=== PATIENT | female | born 1975 | race African-American/Black ===

== ENCOUNTER 2019-11-10 11:55 | Inpatient (IN) | payer OTHER ==
--- NOTE | 2019-11-10 12:29 | BHS.RME ---
Substance Use & Tx History - Substance Use History Alcohol Substance amount: 1 pint to one liter Frequency of use: Daily Substance route: Oral Date of Last Use: 11/10/19 Cannabis Substance amount: one blunt Frequency of use: Once a month Substance route: Smoking Date of Last Use: 11/08/19 Physical/Psych/Mental Status - Behavior General Behavior: Decreased activity Eye Contact: Decreased - Cooperativeness Cooperativeness: Cooperative - Thinking Thought Processes: Tight Thought content: Suicidal ideation ("I just want to do it, but I'm not going to do it") - Physical Health Problems Is patient presently having any pain?: No Does patient presently have any injuries (include location): No Does patient currently have a fever: No CIWA Nausea/Vomitin-Mild Nausea/No Vomiting Muscle Tremors: 3 Anxiety: 1-Mildly Anxious Agitation: 0-Normal Activity Paroxysmal Sweats: No Perspiration Orientation: 0-Oriented Tacttile Disturbances: 0-None Auditory Disturbances: 2-Mild Harshness/Frighten Visual Disturbances: 3-Moderate Sensitivity Headache: 2-Mild CIWA-Ar Total Score: 12
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
[2019-11-10] MEDS ORDERED: MAG HYDROX/AL HYDROX/SIMETH 30 ML UNIT-DOSE CUP PO PRN (13:46)
[2019-11-10] MEDS ORDERED: MAGNESIUM CITRATE 300 ML BOTTLE PO PRN (13:46)
[2019-11-10] MEDS ORDERED: METHOCARBAMOL 500 MG TABLET PO PRN (13:46)
[2019-11-10] MEDS ORDERED: ACETAMINOPHEN 325 MG TABLET (FP) PO PRN ×2 (13:46)
[2019-11-10] MEDS ORDERED: IBUPROFEN 400 MG TABLET (FP) PO PRN (13:46)
[2019-11-10] MEDS ORDERED: NICOTINE POLACRILEX 2 MG GUM BUC PRN (13:46)
[2019-11-10] MEDS ORDERED: MENTHOL/PHENOL 1 EACH UD MM PRN (13:46)
[2019-11-10] MEDS ORDERED: MAGNESIUM HYDROX 2400MG/30ML ORAL SUSPENSION 30 ML CUP PO PRN (13:46)
[2019-11-10] MEDS ORDERED: chlordiazePOXIDE HCL 25 MG CAPSULE PO PRN (13:46)
[2019-11-10 13:58] VITALS: BMI 26.1
[2019-11-10] MEDS ORDERED: BISMUTH SUBSALICYLATE 262 MG/15 ML BTL PO PRN (14:18)
[2019-11-10] MEDS ORDERED: ONDANSETRON *ODT* 4 MG TABLET SL ONE (14:20)
[2019-11-10] MEDS: hydrOXYzine PAMOATE 25 MG CAPSULE (FP) PO SCH ×3 (14:52→22:18)
[2019-11-10] MEDS: PRENATAL VITAMINS W/ FOLIC ACID TABLET (FP) PO SCH (14:52)
[2019-11-10] MEDS: NICOTINE 7 MG/24 HOURS TOPICAL PATCH TD SCH (14:52)
[2019-11-10] MEDS: chlordiazePOXIDE HCL 25 MG CAPSULE PO SCH ×2 (18:05→22:18)
[2019-11-10] MEDS: THIAMINE HCL 100 MG TABLET (FP) PO SCH (22:18)
[2019-11-10] MEDS: MELATONIN 5 MG TABLETS PO SCH (22:19)
[2019-11-11] MEDS: hydrOXYzine PAMOATE 25 MG CAPSULE (FP) PO SCH ×5 (05:31→22:24)
[2019-11-11] MEDS: chlordiazePOXIDE HCL 25 MG CAPSULE PO SCH ×4 (05:31→22:24)
[2019-11-11 09:10] LABS: HEMATOCRIT 34.8 % (32.4-45.2); HEMOGLOBIN 11.3 GM/dL (10.7-15.3); MCH 27.4 pg (25.7-33.7); MCHC 32.4 g/dl (32.0-36.0); MEAN CELL VOLUME 84.6 fl (80-96); MEAN PLT VOLUME 9.1 fl (7.5-11.1); PLATELET COUNT 248 K/MM3 (134-434); RBC 4.11 M/mm3 (3.60-5.2); RDW 18.4 % (11.6-15.6); WHITE BLOOD COUNT 4.1 K/mm3 (4.0-10.0)
[2019-11-11 09:25] LABS: ALBUMIN 3.5 g/dl (3.4-5.0); BILIRUBIN,TOTAL 0.6 mg/dL (0.2-1); BLOOD UREA NITROGEN 11.9 mg/dL (7-18); CALCIUM 9.1 mg/dL (8.5-10.1); CREATININE 0.9 mg/dL (0.55-1.3); POTASSIUM 4.4 mmol/L (3.5-5.1); TOT PROT 7.7 g/dl (6.4-8.2)
[2019-11-11] MEDS: PRENATAL VITAMINS W/ FOLIC ACID TABLET (FP) PO SCH (10:25)
[2019-11-11] MEDS: NICOTINE 7 MG/24 HOURS TOPICAL PATCH TD SCH (10:26)
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
--- NOTE | 2019-11-11 13:47 | PN ---
[facility] CIWA - CIWA Score Nausea/Vomitin-Mild Nausea/No Vomiting Muscle Tremors: 2 Anxiety: 2 Agitation: 2 Paroxysmal Sweats: No Perspiration Orientation: 0-Oriented Tacttile Disturbances: 1-Very Mild Itch/Numbness Auditory Disturbances: 0-None Visual Disturbances: 0-None Headache: 1-Very Mild CIWA-Ar Total Score: 9 S Progress Note (SOAP) Subjective: alert,irritable,anxious,interrupted sleep,tremor Objective: 11/11/19 13:46 Vital Signs Temperature 97.3 F L 11/11/19 08:47 Pulse Rate 72 11/11/19 08:47 Respiratory Rate 17 11/11/19 08:47 Blood Pressure 118/62 11/11/19 08:47 O2 Sat by Pulse Oximetry (%) Laboratory Last Values WBC 4.1 K/mm3 (4.0-10.0) 11/11/19 05:45 RBC 4.11 M/mm3 (3.60-5.2) 11/11/19 05:45 Hgb 11.3 GM/dL (10.7-15.3) 11/11/19 05:45 Hct 34.8 % (32.4-45.2) 11/11/19 05:45 MCV 84.6 fl (80-96) 11/11/19 05:45 MCH 27.4 pg (25.7-33.7) 11/11/19 05:45 MCHC 32.4 g/dl (32.0-36.0) 11/11/19 05:45 RDW 18.4 % (11.6-15.6) H 11/11/19 05:45 Plt Count 248 K/MM3 (134-434) 11/11/19 05:45 MPV 9.1 fl (7.5-11.1) 11/11/19 05:45 Sodium 142 mmol/L (136-145) 11/11/19 05:45 Potassium 4.4 mmol/L (3.5-5.1) 11/11/19 05:45 Chloride 105 mmol/L (98-107) 11/11/19 05:45 Carbon Dioxide 28 mmol/L (21-32) 11/11/19 05:45 Anion Gap 8 MMOL/L (8-16) 11/11/19 05:45 BUN 11.9 mg/dL (7-18) 11/11/19 05:45 Creatinine 0.9 mg/dL (0.55-1.3) 11/11/19 05:45 Est GFR (CKD-EPI)AfAm 90.76 11/11/19 05:45 Est GFR (CKD-EPI)NonAf 78.31 11/11/19 05:45 Random Glucose 83 mg/dL (74-106) 11/11/19 05:45 Calcium 9.1 mg/dL (8.5-10.1) 11/11/19 05:45 Total Bilirubin 0.6 mg/dL (0.2-1) 11/11/19 05:45 AST 24 U/L (15-37) 11/11/19 05:45 ALT 24 U/L (13-61) 11/11/19 05:45 Alkaline Phosphatase 73 U/L (45-117) 11/11/19 05:45 Total Protein 7.7 g/dl (6.4-8.2) 11/11/19 05:45 Albumin 3.5 g/dl (3.4-5.0) 11/11/19 05:45 RPR Titer Nonreactive (NONREACTIVE) 11/11/19 05:45 Assessment: 11/11/19 13:47 withdrawal symptom Plan: continue detox librium regimen
[2019-11-11] MEDS: MELATONIN 5 MG TABLETS PO SCH (22:24)
[2019-11-11] MEDS: THIAMINE HCL 100 MG TABLET (FP) PO SCH (22:24)
[2019-11-12] MEDS: chlordiazePOXIDE HCL 25 MG CAPSULE PO SCH ×4 (05:39→22:31)
[2019-11-12] MEDS: hydrOXYzine PAMOATE 25 MG CAPSULE (FP) PO SCH ×2 (05:39→10:41)
[2019-11-12] MEDS: NICOTINE 7 MG/24 HOURS TOPICAL PATCH TD SCH (10:41)
[2019-11-12] MEDS: PRENATAL VITAMINS W/ FOLIC ACID TABLET (FP) PO SCH (10:41)
[2019-11-12] MEDS ORDERED: hydrOXYzine PAMOATE 25 MG CAPSULE (FP) PO PRN (12:47)
--- NOTE | 2019-11-12 12:50 | PN ---
[facility] CIWA - CIWA Score Nausea/Vomitin-No Nausea/No Vomiting Muscle Tremors: 2 Anxiety: 1-Mildly Anxious Agitation: 2 Paroxysmal Sweats: 2 Orientation: 0-Oriented Tacttile Disturbances: 0-None Auditory Disturbances: 0-None Visual Disturbances: 0-None Headache: 0-None Present CIWA-Ar Total Score: 7 S Progress Note (SOAP) Subjective: sweats diarrhea Objective: 11/12/19 12:49 Vital Signs Temperature 98.1 F 11/12/19 08:50 Pulse Rate 78 11/12/19 08:50 Respiratory Rate 18 11/12/19 08:50 Blood Pressure 129/95 11/12/19 08:50 O2 Sat by Pulse Oximetry (%) Laboratory Tests 11/11/19 11/11/19 11/11/19 05:45 05:45 05:45 WBC 4.1 RBC 4.11 Hgb 11.3 Hct 34.8 MCV 84.6 MCH 27.4 MCHC 32.4 RDW 18.4 H Plt Count 248 MPV 9.1 Sodium 142 Potassium 4.4 Chloride 105 Carbon Dioxide 28 Anion Gap 8 BUN 11.9 Creatinine 0.9 Est GFR (CKD-EPI)AfAm 90.76 Est GFR (CKD-EPI)NonAf 78.31 Random Glucose 83 Calcium 9.1 Total Bilirubin 0.6 AST 24 ALT 24 Alkaline Phosphatase 73 Total Protein 7.7 Albumin 3.5 RPR Titer Nonreactive labs noted aaox3 ambulating no acute distress Assessment: 11/12/19 12:50 withdrawals Plan: continue detox increase fluids imodium prn
[2019-11-12] MEDS: LOPERAMIDE HCL 2 MG CAPSULE PO PRN (16:17)
[2019-11-12] MEDS: MELATONIN 5 MG TABLETS PO SCH (22:31)
[2019-11-12] MEDS: THIAMINE HCL 100 MG TABLET (FP) PO SCH (22:31)
[2019-11-13] MEDS ORDERED: chlordiazePOXIDE HCL 10 MG CAPSULE PO PRN
[2019-11-13] MEDS ORDERED: ONDANSETRON *ODT* 4 MG TABLET SL PRN (02:27)
[2019-11-13] MEDS: chlordiazePOXIDE HCL 10 MG CAPSULE PO SCH ×4 (06:17→22:28)
[2019-11-13] MEDS: NICOTINE 7 MG/24 HOURS TOPICAL PATCH TD SCH (10:44)
[2019-11-13] MEDS: PRENATAL VITAMINS W/ FOLIC ACID TABLET (FP) PO SCH (10:44)
[2019-11-13] MEDS: LOPERAMIDE HCL 2 MG CAPSULE PO PRN (10:45)
--- NOTE | 2019-11-13 12:07 | PN ---
S CIWA - CIWA Score Nausea/Vomitin-No Nausea/No Vomiting Muscle Tremors: 2 Anxiety: 1-Mildly Anxious Agitation: 2 Paroxysmal Sweats: 1-Minimal Palms Moist Orientation: 0-Oriented Tacttile Disturbances: 0-None Auditory Disturbances: 0-None Visual Disturbances: 0-None Headache: 0-None Present CIWA-Ar Total Score: 6 BHS Progress Note (SOAP) Subjective: sweats diarrhea nausea interrupted sleep/insomnia Objective: 11/13/19 12:04 Vital Signs Temperature 99.1 F 11/13/19 08:42 Pulse Rate 80 11/13/19 08:42 Respiratory Rate 18 11/13/19 08:42 Blood Pressure 115/77 11/13/19 08:42 O2 Sat by Pulse Oximetry (%) Laboratory Tests 11/11/19 11/11/19 11/11/19 05:45 05:45 05:45 WBC 4.1 RBC 4.11 Hgb 11.3 Hct 34.8 MCV 84.6 MCH 27.4 MCHC 32.4 RDW 18.4 H Plt Count 248 MPV 9.1 Sodium 142 Potassium 4.4 Chloride 105 Carbon Dioxide 28 Anion Gap 8 BUN 11.9 Creatinine 0.9 Est GFR (CKD-EPI)AfAm 90.76 Est GFR (CKD-EPI)NonAf 78.31 Random Glucose 83 Calcium 9.1 Total Bilirubin 0.6 AST 24 ALT 24 Alkaline Phosphatase 73 Total Protein 7.7 Albumin 3.5 RPR Titer Nonreactive aaox3 lying in bed no acute distress Assessment: 11/13/19 12:05 withdrawal sx Plan: continue detox increase fluids pepto prn melatonin 10mg
[2019-11-13] MEDS: MELATONIN 5 MG TABLETS PO SCH (22:28)
[2019-11-13] MEDS: THIAMINE HCL 100 MG TABLET (FP) PO SCH (22:28)
[2019-11-14] MEDS ORDERED: chlordiazePOXIDE HCL 10 MG CAPSULE PO SCH (05:00)
--- NOTE | 2019-11-14 09:00 | DS ---
[facility] Detox Discharge Summary Admission Date: 11/10/19 Discharge Date: 11/14/19 - History Present History: Alcohol Dependence - Physical Exam Results Vital Signs: Vital Signs Temperature 98.2 F 11/14/19 06:52 Pulse Rate 82 11/14/19 06:52 Respiratory Rate 18 11/14/19 06:52 Blood Pressure 115/81 11/14/19 06:52 O2 Sat by Pulse Oximetry (%) Pertinent Admission Physical Exam Findings: Vital Signs Temperature 98.2 F 11/14/19 06:52 Pulse Rate 82 11/14/19 06:52 Respiratory Rate 18 11/14/19 06:52 Blood Pressure 115/81 11/14/19 06:52 O2 Sat by Pulse Oximetry (%) Laboratory Tests 11/11/19 11/11/19 11/11/19 05:45 05:45 05:45 WBC 4.1 RBC 4.11 Hgb 11.3 Hct 34.8 MCV 84.6 MCH 27.4 MCHC 32.4 RDW 18.4 H Plt Count 248 MPV 9.1 Sodium 142 Potassium 4.4 Chloride 105 Carbon Dioxide 28 Anion Gap 8 BUN 11.9 Creatinine 0.9 Est GFR (CKD-EPI)AfAm 90.76 Est GFR (CKD-EPI)NonAf 78.31 Random Glucose 83 Calcium 9.1 Total Bilirubin 0.6 AST 24 ALT 24 Alkaline Phosphatase 73 Total Protein 7.7 Albumin 3.5 RPR Titer Nonreactive aaox3 ambulating no acute distress +BS all 4 quadrants - Treatment Hospital Course: Detox Protocol Followed, Detoxed Safely, Responded well, Discharged Condition Good, Rehab Referral Accepted - Medication Discharge Medications: Ambulatory Orders NK [No Known Home Medication] 11/10/19 - Diagnosis (1) Alcohol dependence with intoxication Current Visit: Yes Status: Acute (2) Anemia Current Visit: Yes Status: Acute (3) Asthma Current Visit: Yes Status: Acute (4) GERD (gastroesophageal reflux disease) Current Visit: Yes Status: Chronic Qualifiers: Esophagitis presence: without esophagitis Qualified Code(s): K21.9 - Gastro-esophageal reflux disease without esophagitis (5) Major depression, recurrent Current Visit: Yes Status: Acute (6) Alcohol use disorder Current Visit: Yes Status: Chronic (7) History of depression Current Visit: Yes Status: Chronic (8) Nicotine dependence Current Visit: Yes Status: Chronic Qualifiers: Nicotine product type: cigarettes Substance use status: uncomplicated Qualified Code(s): F17.210 - Nicotine dependence, cigarettes, uncomplicated (9) Substance induced mood disorder Current Visit: Yes Status: Chronic - AMA Did Patient Leave Against Medical Advice: No
[2019-11-14 09:31] VITALS: BP 125/69; PULSE 75; TEMP 97.4
[2019-11-15] MEDS ORDERED: chlordiazePOXIDE HCL 10 MG CAPSULE PO ONE (05:00)
== END 2019-11-14 10:11 | disposition home or self-care (01) | DRG 775 ==
LOC: YASAS 11:55 → Y6N 13:51
PROVIDERS: ADMIT Allergy & Immunology; ATTEND Allergy & Immunology
PROC: HZ2ZZZZ Detoxification Services for Substance Abuse Treatment (ICD-10-PCS; principal; 2019-11-10)
DX: F10.230 Alcohol dependence with withdrawal, uncomplicated (principal); F17.210 Nicotine dependence, cigarettes, uncomplicated; F19.24 Other psychoactive substance dependence with psychoactive substance-induced mood disorder; F33.9 Major depressive disorder, recurrent, unspecified; D64.9 Anemia, unspecified; J45.909 Unspecified asthma, uncomplicated; K21.9 Gastro-esophageal reflux disease without esophagitis; Z59.0 Homelessness
CPT/HCPCS: 36415; 80053; 85027; 86593; Q0162

== ENCOUNTER 2020-04-12 09:05 | Inpatient (IN) | payer OTHER ==
--- NOTE | 2020-04-12 09:38 | BHS.RME ---
Substance Use & Tx History - Substance Use History Alcohol Substance amount: 1 pint vodka Frequency of use: Daily Substance route: Oral Date of Last Use: 04/11/20 Marijuana/Hashish Substance amount: $10 Frequency of use: Once a month Substance route: Smoking Date of Last Use: 04/05/20 Nicotine Substance amount: 1/2 PACK Frequency of use: Daily Substance route: Smoking Date of Last Use: 04/12/20 Physical/Psych/Mental Status - Behavior General Behavior: Increased activity (restlessness, agitation) Eye Contact: Normal - Cooperativeness Cooperativeness: Cooperative - Thinking Thought Processes: Tight, Logical, Goal Directed - Physical Health Problems Is patient presently having any pain?: No Does patient presently have any injuries (include location): No Does patient currently have a fever: No Is patient : No CIWA Nausea/Vomitin Muscle Tremors: 6 Anxiety: 3 Agitation: 3 Paroxysmal Sweats: 1-Minimal Palms Moist Orientation: 0-Oriented Tacttile Disturbances: 0-None Auditory Disturbances: 0-None Visual Disturbances: 0-None Headache: 2-Mild CIWA-Ar Total Score: 18
[2020-04-12 09:55] VITALS: BMI 26.5
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
[2020-04-12] MEDS ORDERED: ONDANSETRON *ODT* 4 MG TABLET SL ONE (11:06)
[2020-04-12] MEDS ORDERED: BISMUTH SUBSALICYLATE 524 MG/30 ML UD PO PRN (11:06)
[2020-04-12] MEDS ORDERED: MAGNESIUM CITRATE 300 ML BOTTLE PO PRN (11:06)
[2020-04-12] MEDS ORDERED: MAGNESIUM HYDROX 2400MG/30ML ORAL SUSPENSION 30 ML CUP PO PRN (11:06)
[2020-04-12] MEDS ORDERED: IBUPROFEN 400 MG TABLET (FP) PO PRN (11:06)
[2020-04-12] MEDS ORDERED: MENTHOL/PHENOL 1 EACH UD MM PRN (11:06)
[2020-04-12] MEDS ORDERED: METHOCARBAMOL 500 MG TABLET PO PRN (11:06)
[2020-04-12] MEDS ORDERED: ACETAMINOPHEN 325 MG TABLET (FP) PO PRN ×2 (11:06)
[2020-04-12] MEDS ORDERED: chlordiazePOXIDE HCL 25 MG CAPSULE PO PRN (11:06)
--- NOTE | 2020-04-12 11:58 | CONSULT ---
[facility] Psychiatric Consult - Data Date of interview: 04/12/20 Admission source: [facility] Identifying data: Revisit to [facility] and admission to [address] [place] [address] for this 44 y/o AA female, referred by [facility] for detoxification treatment. JUSTINA issues : alcohol, nicotine, cannabis (sporadic use). Patient is single without children, homeless (resides in a retirement), unemployed and supported on undisclosed means. Substance Abuse History: Discussed with the patient. JUSTINA profile as follows : Smoking history: Current every day smoker. Have you smoked in the past 12 months: Yes. Aproximately how many cigarettes per day: 10. Hx Chewing Tobacco Use: No. Initiated information on smoking cessation: Yes. 'Breaking Loose' booklet given: 04/12/20. - Substances abused. Alcohol. Substance route: Oral. Frequency: Daily. Amount used: 1 PINT OF VODKA. Age of first use: 18. Date of last use: 04/11/20. Marijuana/Hashish. Substance route: Smoking. Frequency: 1-3 times last 30 days. Amount used: $10. Age of first use: 25. Date of last use: 04/05/20. Alcohol. Substance amount: 1 pint vodka. Frequency of use: Daily. Substance route: Oral. Date of Last Use: 04/11/20. Admits to having a black out just 1 month ago and has had many blackouts in the past. also endorses an eye umbrella tipper machine daily. Marijuana/Hashish. Substance amount: $10. Frequency of use: Once a month. Substance route: Smoking. Date of Last Use: 04/05/20. Nicotine. Substance amount: 1/2 PACK. Frequency of use: Daily. Substance route: Smoking. Date of Last Use: 04/12/20. PMH: Anemia, Asthma. Psurg: None. Psych: Depression on no meds. She is homeless in a [employer] in the [place]. She has no legal problems. CIWA=18. LINDSAY=0.014. Urine Tox: BZO. She meets criteria for detox as she has a poor recovery environment because she is homeless and has multiple medical and psychiatric co-morbidities. History Source: Patient. Limitations to Obtaining History: No Limitations Medical History: Medical profile is remarkable for anemia, GERD and bronchial asthma. Psychiatric History: Patient continues to endorse history of two psychiatric hospitalizations ([facility] in March 2019 + [facility] in October 2019). Onset of psychiatric disturbances (mood dysregulation) : age 41. Ms Braun was reportedly diagnosed with MDD and Anxiety Disorder (in the past). She states that she got prescribed " something for depression but never took the pill." Patient is not able to recall name of the drug. She indicates that she has been lost to follow-up for several weeks (appointments not kept). Patient reports a history of two suicide attempts via choking (made an attempt yesterday while in ED at [facility]). She was evaluated by a psychiatrist and discharged with referral to [facility] for detoxification treatment. Physical/Sexual Abuse/Trauma History: Patient denies. Additional Comment: Urine drug screen results: BZO-Benzodiazepines. Noted. Mental Status Exam - Mental Status Exam Alert and Oriented to: Time, Place, Person Cognitive Function: Good Patient Appearance: Well Groomed Mood: Hopeful Affect: Appropriate, Normal Range Patient Behavior: Fatigued, Appropriate, Cooperative Speech Pattern: Clear, Appropriate Voice Loudness: Normal Thought Process: Intact, Goal Oriented Thought Disorder: Not Present Hallucinations: Denies Suicidal Ideation: Denies Homicidal Ideation: Denies Insight/Judgement: Poor Sleep: Poorly, Difficulty falling asleep Appetite: Good Gait/Station: Normal Psychiatric Findings - Problem List ([place] 1, 2,3) (1) Alcohol use disorder Current Visit: Yes Status: Chronic (2) Cannabis dependence Current Visit: Yes Status: Chronic (3) Nicotine dependence Current Visit: Yes Status: Chronic Qualifiers: Nicotine product type: cigarettes Substance use status: uncomplicated Qualified Code(s): F17.210 - Nicotine dependence, cigarettes, uncomplicated (4) Substance induced mood disorder Current Visit: Yes Status: Chronic (5) History of depression Current Visit: Yes Status: Chronic (6) Insomnia Current Visit: Yes Status: Chronic (7) Non-compliance Current Visit: Yes Status: Chronic - Initial Treatment Plan Initial Treatment Plan: Case discussed with referring source, Dr Johnson. Consult conducted, with medical students in attendance (with patient's consent) at [facility]. Patient is NOT suicidal or homicidal. Mental status is stable. Ms Braun is agreeable with admission to the detoxification unit. " I am OK with detox but I will not stay for rehab. I prefer outpatient instead after detox. " Support and reassurance provided in this session. Psychoeducation. MAT-ETOH services offered (patient used to be on vivitrol). Sleep hygiene. Detoxification. Insomnia is addressed with melatonin (on consent). Motivational counseling. Observation.
[2020-04-12] MEDS: NICOTINE 7 MG/24 HOURS TOPICAL PATCH TD SCH (13:43)
[2020-04-12] MEDS: PRENATAL VITAMINS W/ FOLIC ACID TABLET (FP) PO SCH (13:44)
[2020-04-12] MEDS: chlordiazePOXIDE HCL 25 MG CAPSULE PO SCH ×3 (13:44→22:14)
[2020-04-12] MEDS: hydrOXYzine PAMOATE 25 MG CAPSULE (FP) PO SCH ×3 (13:44→22:14)
--- NOTE | 2020-04-12 13:55 | PN ---
[facility] Progress Note Note: Pt states she is on Suboxone Patient Name: Kasandra BraunBirth Date: 1975 Address: [address] [place] [id number]: Female Rx Written Rx Dispensed Drug Quantity Days Supply Prescriber Name 03/25/2020 03/25/2020 buprenorphine-naloxone 8-2 mg sl film 90 30 Peewee Gutierrez DIRECTOR OF [employer] 02/22/2020 02/23/2020 buprenorphine-naloxone 8-2 mg sl film 90 30 Peewee Gutierrez DIRECTOR OF [employer]PORATE REAL ESTATE 06/06/2019 06/07/2019 buprenorphine-naloxone 8-2 mg sl film 30 10 Giacomo Norris ([place]) 05/11/2019 05/11/2019 buprenorphine-naloxone 8-2 mg sl film 60 20 Giacomo Hanson ([place]) Will order Suboxone, pt states she takes it tid.
[2020-04-12] MEDS: THIAMINE HCL 100 MG TABLET (FP) PO SCH (22:14)
[2020-04-12] MEDS: MELATONIN 5 MG TABLETS PO SCH (22:14)
[2020-04-12] MEDS: BUPRENORPHINE/NALOXONE 8 MG/2 MG FILM PACKET SL SCH (22:15)
[2020-04-13] MEDS: BUPRENORPHINE/NALOXONE 8 MG/2 MG FILM PACKET SL SCH ×3 (05:20→21:54)
[2020-04-13] MEDS: chlordiazePOXIDE HCL 25 MG CAPSULE PO SCH ×4 (05:20→21:59)
[2020-04-13] MEDS: hydrOXYzine PAMOATE 25 MG CAPSULE (FP) PO SCH ×5 (05:20→21:54)
[2020-04-13] MEDS: NICOTINE POLACRILEX 2 MG GUM BUC PRN (05:21)
[2020-04-13 09:12] LABS: HEMATOCRIT 34.7 % (32.4-45.2); HEMOGLOBIN 11.1 GM/dL (10.7-15.3); MCH 27.3 pg (25.7-33.7); MEAN CELL VOLUME 85.2 fl (80-96); MEAN PLT VOLUME 9.1 fl (7.5-11.1); PLATELET COUNT 159 K/MM3 (134-434); RBC 4.07 M/mm3 (3.60-5.2); RDW 17.8 % (11.6-15.6); WHITE BLOOD COUNT 3.8 K/mm3 (4.0-10.0)
[2020-04-13 09:26] LABS: ALBUMIN 3.2 g/dl (3.4-5.0); BILIRUBIN,TOTAL 0.9 mg/dL (0.2-1); BLOOD UREA NITROGEN 9.4 mg/dL (7-18); CALCIUM 9.1 mg/dL (8.5-10.1); CREATININE 0.9 mg/dL (0.55-1.3); POTASSIUM 3.7 mmol/L (3.5-5.1); TOT PROT 6.9 g/dl (6.4-8.2)
[2020-04-13] MEDS: PRENATAL VITAMINS W/ FOLIC ACID TABLET (FP) PO SCH (10:29)
[2020-04-13] MEDS: NICOTINE 7 MG/24 HOURS TOPICAL PATCH TD SCH (10:30)
--- NOTE | 2020-04-13 11:39 | PN ---
[facility] CIWA - CIWA Score Nausea/Vomitin-No Nausea/No Vomiting Muscle Tremors: 2 Anxiety: 3 Agitation: 1-Slight > Activity Paroxysmal Sweats: 3 Orientation: 0-Oriented Tacttile Disturbances: 0-None Auditory Disturbances: 0-None Visual Disturbances: 0-None Headache: 2-Mild CIWA-Ar Total Score: 11 S Progress Note (SOAP) Subjective: c/o irritability, anxiety, sweats, shakes, and headache. Objective: 04/13/20 11:39 Vital Signs 04/13/20 04/13/20 06:34 08:48 Temperature 97.4 F L 97.2 F L Pulse Rate 66 84 Respiratory 18 20 Rate Blood Pressure 99/61 121/80 O2 Sat by Pulse 97 Oximetry (%) Laboratory Last Values WBC 3.8 K/mm3 (4.0-10.0) L 04/13/20 06:50 RBC 4.07 M/mm3 (3.60-5.2) 04/13/20 06:50 Hgb 11.1 GM/dL (10.7-15.3) 04/13/20 06:50 Hct 34.7 % (32.4-45.2) 04/13/20 06:50 MCV 85.2 fl (80-96) 04/13/20 06:50 MCH 27.3 pg (25.7-33.7) 04/13/20 06:50 MCHC 32.0 g/dl (32.0-36.0) 04/13/20 06:50 RDW 17.8 % (11.6-15.6) H 04/13/20 06:50 Plt Count 159 K/MM3 (134-434) 04/13/20 06:50 MPV 9.1 fl (7.5-11.1) 04/13/20 06:50 Sodium 140 mmol/L (136-145) 04/13/20 06:50 Potassium 3.7 mmol/L (3.5-5.1) 04/13/20 06:50 Chloride 105 mmol/L (98-107) 04/13/20 06:50 Carbon Dioxide 25 mmol/L (21-32) 04/13/20 06:50 Anion Gap 9 MMOL/L (8-16) 04/13/20 06:50 BUN 9.4 mg/dL (7-18) 04/13/20 06:50 Creatinine 0.9 mg/dL (0.55-1.3) 04/13/20 06:50 Est GFR (CKD-EPI)AfAm 90.76 04/13/20 06:50 Est GFR (CKD-EPI)NonAf 78.31 04/13/20 06:50 Random Glucose 103 mg/dL (74-106) 04/13/20 06:50 Calcium 9.1 mg/dL (8.5-10.1) 04/13/20 06:50 Total Bilirubin 0.9 mg/dL (0.2-1) 04/13/20 06:50 AST 29 U/L (15-37) 04/13/20 06:50 ALT 29 U/L (13-61) 04/13/20 06:50 Alkaline Phosphatase 59 U/L (45-117) 04/13/20 06:50 Total Protein 6.9 g/dl (6.4-8.2) 04/13/20 06:50 Albumin 3.2 g/dl (3.4-5.0) L 04/13/20 06:50 Syphilis Serology Non-reactive (NONREACTIVE) 04/13/20 06:50 Labs noted. Assessment: 04/13/20 11:39 AOX3 and in no acute respiratory distress. Full ROM, ambulating in the unit. Withdrawal symptoms. Plan: continue detox.
[2020-04-13] MEDS: MAG HYDROX/AL HYDROX/SIMETH 30 ML UNIT-DOSE CUP PO PRN (12:39)
[2020-04-13] MEDS: THIAMINE HCL 100 MG TABLET (FP) PO SCH (21:54)
[2020-04-13] MEDS: MELATONIN 5 MG TABLETS PO SCH (21:54)
[2020-04-14] MEDS: chlordiazePOXIDE HCL 25 MG CAPSULE PO SCH ×4 (05:22→22:18)
[2020-04-14] MEDS: hydrOXYzine PAMOATE 25 MG CAPSULE (FP) PO SCH ×5 (05:22→22:18)
[2020-04-14] MEDS: BUPRENORPHINE/NALOXONE 8 MG/2 MG FILM PACKET SL SCH ×3 (05:22→22:18)
[2020-04-14] MEDS: MAG HYDROX/AL HYDROX/SIMETH 30 ML UNIT-DOSE CUP PO PRN ×2 (10:19→20:10)
[2020-04-14] MEDS: PRENATAL VITAMINS W/ FOLIC ACID TABLET (FP) PO SCH (10:19)
[2020-04-14] MEDS: NICOTINE 7 MG/24 HOURS TOPICAL PATCH TD SCH (10:20)
[2020-04-14] MEDS: NICOTINE POLACRILEX 2 MG GUM BUC PRN (10:21)
[2020-04-14] MEDS ORDERED: ONDANSETRON *ODT* 4 MG TABLET SL ONE (12:34)
--- NOTE | 2020-04-14 12:39 | PN ---
S CIWA - CIWA Score Nausea/Vomitin-Mild Nausea/No Vomiting Muscle Tremors: 4-Moderate,w/Arms Extend Anxiety: 3 Agitation: 1-Slight > Activity Paroxysmal Sweats: 1-Minimal Palms Moist Orientation: 0-Oriented Tacttile Disturbances: 0-None Auditory Disturbances: 0-None Visual Disturbances: 0-None Headache: 0-None Present CIWA-Ar Total Score: 10 BHS Progress Note (SOAP) Subjective: 44 years old female admitted on 04/12/20 for alcohol withdrawal sx management treating with librium detox regiment feeling nausea denies vomiting zofran 4 mg sl x 1 left inferior deltoid "glass" cut sutures intact mild epidermal edematous no bleed no exudates left mid and 4th distal fingers "glass" cuts noted sutures intact encourage ms baron to keep area clear and dry free of irritation Objective: 04/14/20 12:48 Vital Signs - 24 hr 04/13/20 04/13/20 04/14/20 16:50 20:44 05:35 Temperature 96.9 F L 97.3 F L 97.3 F L Pulse Rate 75 76 91 H Respiratory 16 16 18 Rate Blood Pressure 134/94 142/85 100/60 O2 Sat by Pulse 97 97 Oximetry (%) 04/14/20 08:36 Temperature 97.3 F L Pulse Rate 106 H Respiratory 20 Rate Blood Pressure 117/89 O2 Sat by Pulse Oximetry (%) Laboratory Tests 04/12/20 04/13/20 04/13/20 12:00 06:50 06:50 WBC 3.8 L RBC 4.07 Hgb 11.1 Hct 34.7 MCV 85.2 MCH 27.3 MCHC 32.0 RDW 17.8 H Plt Count 159 MPV 9.1 Sodium 140 Potassium 3.7 Chloride 105 Carbon Dioxide 25 Anion Gap 9 BUN 9.4 Creatinine 0.9 Est GFR (CKD-EPI)AfAm 90.76 Est GFR (CKD-EPI)NonAf 78.31 Random Glucose 103 Calcium 9.1 Total Bilirubin 0.9 AST 29 ALT 29 Alkaline Phosphatase 59 Total Protein 6.9 Albumin 3.2 L Syphilis Serology COVID-19 (ROBERT) Not detected 04/13/20 06:50 WBC RBC Hgb Hct MCV MCH MCHC RDW Plt Count MPV Sodium Potassium Chloride Carbon Dioxide Anion Gap BUN Creatinine Est GFR (CKD-EPI)AfAm Est GFR (CKD-EPI)NonAf Random Glucose Calcium Total Bilirubin AST ALT Alkaline Phosphatase Total Protein Albumin Syphilis Serology Non-reactive COVID-19 (ROBERT) Assessment: 04/14/20 12:48 alcohol withdrawal Plan: librium regiment
[2020-04-14] MEDS: BACITRACIN 0.9 GM PACKET TP SCH ×2 (13:07→22:19)
[2020-04-14] MEDS: THIAMINE HCL 100 MG TABLET (FP) PO SCH (22:18)
[2020-04-14] MEDS: MELATONIN 5 MG TABLETS PO SCH (22:18)
[2020-04-15] MEDS ORDERED: chlordiazePOXIDE HCL 10 MG CAPSULE PO PRN
[2020-04-15] MEDS ORDERED: chlordiazePOXIDE HCL 10 MG CAPSULE PO SCH (05:00)
[2020-04-15] MEDS: hydrOXYzine PAMOATE 25 MG CAPSULE (FP) PO SCH (05:01)
[2020-04-15] MEDS: BUPRENORPHINE/NALOXONE 8 MG/2 MG FILM PACKET SL SCH (05:02)
--- NOTE | 2020-04-15 08:48 | DS ---
[facility] Detox Discharge Summary Admission Date: 04/12/20 Discharge Date: 04/15/20 - History Present History: Alcohol Dependence Additional Comments: 44 years old female admitted on 04/12/20 for alcohol withdrawal sx management treated with librium detox regiment ms draper states that she feels better today and prefers to picking machine operator belonging from half-way and follow up with suboxone program for alcohol and opiate recovery through behavioral and psychosocial therapies as well as "glass cut" care follow up with [facility] for sutures removal left arm deltoid sutures and left 4th distal finger sutures intact no signs of infection noted denies pain no bleed no exudate none tender seen by psychiatrist no medical intervention necessary alert oriented x 3 speech clearly coherently General Appearance: Yes: No Apparent Distress, Moderate Distress, Thin, Tremorous, Irritable, Sweating, Anxious HEENTM: Yes: EOMI, Hearing grossly Normal, Normal ENT Inspection, Normocephalic, Normal Voice, TARA, Pharynx Normal, Tm's normal Respiratory: Yes: Chest Non-Tender, Lungs Clear, Normal Breath Sounds, No Respiratory Distress, No Accessory Muscle Use Neck: Yes: No masses,lesions,Nodules, Supple, Trachea in good position Breast: Yes: Breast Exam Deferred Cardiology: Yes: Regular Rhythm, S1, S2, Tachycardia Abdominal: Yes: Normal Bowel Sounds, Non Tender, Soft, Protuberent Genitourinary: Yes: Within Normal Limits Back: Yes: Normal Inspection Musculoskeletal: Yes: full range of Motion, Gait Steady, Pelvis Stable Extremities: Yes: Normal Capillary Refill, Normal Inspection, Normal Range of Motion, Non-Tender, Other (laceration left upper arm with sutures in arm right finger laceration that is wrapped.) Neurological: Yes: program consultant II-XII NML intact, Fully Oriented, Alert, Motor Strength 5/5, Normal Mood/Affect, Normal Response Integumentary: Yes: Normal Color, Dry, Warm Lymphatic: Yes: Within Normal Limits Pertinent Past History: time for discharge 45 minutes treatment team met with ms draper to discuss benefits of librium regiment completion ms draper insists to guard her belonging at the half-way and prefers to follow up with suboxone program for alcohol recovery - Physical Exam Results Vital Signs: Vital Signs Temperature 97.3 F L 04/15/20 06:49 Pulse Rate 89 04/15/20 06:49 Respiratory Rate 18 04/15/20 06:49 Blood Pressure 101/68 04/15/20 06:49 O2 Sat by Pulse Oximetry (%) 98 04/15/20 06:49 Pertinent Admission Physical Exam Findings: alcohol withdrawal Vital Signs - 24 hr 04/14/20 04/14/20 04/14/20 12:36 16:37 20:23 Temperature 97.1 F L 97.3 F L 97.3 F L Pulse Rate 82 83 72 Respiratory 18 18 18 Rate Blood Pressure 136/90 119/87 152/95 O2 Sat by Pulse 100 100 Oximetry (%) 04/15/20 04/15/20 06:49 08:43 Temperature 97.3 F L 96.9 F L Pulse Rate 89 105 H Respiratory 18 18 Rate Blood Pressure 101/68 107/78 O2 Sat by Pulse 98 Oximetry (%) Laboratory Tests 04/12/20 04/13/20 04/13/20 12:00 06:50 06:50 WBC 3.8 L RBC 4.07 Hgb 11.1 Hct 34.7 MCV 85.2 MCH 27.3 MCHC 32.0 RDW 17.8 H Plt Count 159 MPV 9.1 Sodium 140 Potassium 3.7 Chloride 105 Carbon Dioxide 25 Anion Gap 9 BUN 9.4 Creatinine 0.9 Est GFR (CKD-EPI)AfAm 90.76 Est GFR (CKD-EPI)NonAf 78.31 Random Glucose 103 Calcium 9.1 Total Bilirubin 0.9 AST 29 ALT 29 Alkaline Phosphatase 59 Total Protein 6.9 Albumin 3.2 L Syphilis Serology COVID-19 (ROBERT) Not detected 04/13/20 06:50 WBC RBC Hgb Hct MCV MCH MCHC RDW Plt Count MPV Sodium Potassium Chloride Carbon Dioxide Anion Gap BUN Creatinine Est GFR (CKD-EPI)AfAm Est GFR (CKD-EPI)NonAf Random Glucose Calcium Total Bilirubin AST ALT Alkaline Phosphatase Total Protein Albumin Syphilis Serology Non-reactive COVID-19 (ROBERT) lab noted - Treatment Hospital Course: Detox Protocol Followed, Detoxed Safely, Responded well, Discharged Condition Good, Rehab Referral Accepted Patient has Accepted a Rehab Referral to: suboxone maintenance program - Medication Discharge Medications: Ambulatory Orders NK [No Known Home Medication] 04/12/20 - Diagnosis (1) Alcohol dependence, uncomplicated Status: Acute (2) Encounter for monitoring Suboxone maintenance therapy Status: Chronic (3) Substance induced mood disorder Status: Suspected (4) Asthma Status: Chronic Qualifiers: Asthma severity: mild Asthma persistence: intermittent Asthma complication type: with status asthmaticus Qualified Code(s): J45.22 - Mild intermittent asthma with status asthmaticus (5) GERD (gastroesophageal reflux disease) Status: Chronic Qualifiers: Esophagitis presence: without esophagitis Qualified Code(s): K21.9 - Gastro-esophageal reflux disease without esophagitis (6) Nicotine dependence Status: Acute Qualifiers: Nicotine product type: cigarettes Substance use status: in withdrawal Qualified Code(s): F17.213 - Nicotine dependence, cigarettes, with withdrawal (7) Substance induced mood disorder Status: Suspected (8) Laceration Status: Acute - AMA Did Patient Leave Against Medical Advice: No CIWA Score - CIWA Score Nausea/Vomitin-No Nausea/No Vomiting Muscle Tremors: 2 Anxiety: 2 Agitation: 1-Slight > Activity Paroxysmal Sweats: No Perspiration Orientation: 0-Oriented Tacttile Disturbances: 0-None Auditory Disturbances: 0-None Visual Disturbances: 0-None Headache: 0-None Present CIWA-Ar Total Score: 5
[2020-04-15 09:24] VITALS: BP 107/78; PULSE 105; TEMP 96.9
[2020-04-16] MEDS ORDERED: chlordiazePOXIDE HCL 10 MG CAPSULE PO SCH (05:00)
[2020-04-17] MEDS ORDERED: chlordiazePOXIDE HCL 10 MG CAPSULE PO ONE (05:00)
== END 2020-04-15 09:31 | disposition home or self-care (01) | DRG 773 ==
LOC: YASAS 09:05 → Y3N 10:15
PROVIDERS: ADMIT Allergy & Immunology; ATTEND Allergy & Immunology
PROC: HZ2ZZZZ Detoxification Services for Substance Abuse Treatment (ICD-10-PCS; principal; 2020-04-12)
DX: F10.230 Alcohol dependence with withdrawal, uncomplicated (principal); F11.20 Opioid dependence, uncomplicated; F12.20 Cannabis dependence, uncomplicated; F17.213 Nicotine dependence, cigarettes, with withdrawal; F19.24 Other psychoactive substance dependence with psychoactive substance-induced mood disorder; K21.9 Gastro-esophageal reflux disease without esophagitis; J45.20 Mild intermittent asthma, uncomplicated; G47.00 Insomnia, unspecified; R00.0 Tachycardia, unspecified; Z91.19 Patient's noncompliance with other medical treatment and regimen; S41.112D Laceration without foreign body of left upper arm, subsequent encounter; S61.218D Laceration without foreign body of other finger without damage to nail, subsequent encounter; X99.0XXD Assault by sharp glass, subsequent encounter; Z91.5 Personal history of self-harm; Z59.0 Homelessness
CPT/HCPCS: 36415; 80053; 81025; 85027; 86780; Q0162; U0003

== ENCOUNTER 2020-05-09 18:29 | Inpatient (IN) | payer OTHER ==
--- NOTE | 2020-05-09 20:33 | HP ---
CIWA Score Nausea/Vomitin-Mild Nausea/No Vomiting Muscle Tremors: 3 Anxiety: 4-Mod. Anxious/Guarded Agitation: 1-Slight > Activity Paroxysmal Sweats: 2 Orientation: 0-Oriented Tacttile Disturbances: 2-Mild Itch/Numbness/Burn Auditory Disturbances: 0-None Visual Disturbances: 1-Very Mild Sensitivity Headache: 0-None Present CIWA-Ar Total Score: 14 - Admission Criteria OASAS Guidelines: Admission for Medically Managed Detox: Requires at least one of the followin. CIWA greater than 12 2. Seizures within the past 24 hours 3. Delirium tremens within the past 24 hours 4. Hallucinations within the past 24 hours 5. Acute intervention needed for co occurring medical disorder 6. Acute intervention needed for co occurring psychiatric disorder 7. Severe withdrawal that cannot be handled at a lower level of care (continued vomiting, continued diarrhea, abnormal vital signs) requiring intravenous medication and/or fluids 8. Patient presents the following: CIWA greater than 12 Admission Criteria Met: Admission criteria met Admitting History and Physical - Admission Chief Complaint: alcohol withdrawal symptoms - Past Medical History Pulmonary: Yes: Asthma ...LMP: 11/05/19 Heme/Onc: Yes: Anemia Psych: Yes: Depression - Past Surgical History Past Surgical History: Yes: None - Smoking History Smoking history: Current every day smoker Have you smoked in the past 12 months: Yes Aproximately how many cigarettes per day: 10 - Alcohol/Substance Use Hx Alcohol Use: Yes Number of Drinks Daily: 10 - Social History ADL: Independent Occupation: unemployed History of Recent Travel: No Admission ROS [facility] Chief Complaint: alcohol withdrawal sx Allergies/Adverse Reactions: Allergies Allergy/AdvReac Type Severity Reaction Status Date / Time No Known Allergies Allergy Verified 04/12/20 10:30 History of Present Illness: Patient is a 45 yo homeless, female with hx of opioid, and alcohol dependence is here seeking inpatient detox for alcohol withdrawal. Denies any hospitalizations in the past three months or emergency room visits. Patient denies hx of seizures, reports frequent alcohol blackouts. Reports on Suboxone program at [facility] on 8mg BID. PMHX: Asthma, GERD. Psych: Bipolar and anxiety. Denies suicidal /homicidal ideation. Last detox [facility] 04/12/20 -04/15/20, reports relapsed soon after, is motivated to attend rehabilitation upon completing detox. Patient Name: Kasandra Youssef Date: 1975 Address: [address] [place] [id number]: Female Rx Written Rx Dispensed Drug Quantity Days Supply Prescriber Name Payment Method Dispenser 03/25/2020 03/25/2020 buprenorphine-naloxone 8-2 mg sl film 90 30 Peewee Gutierrez NP Insurance [facility] 02/22/2020 02/23/2020 buprenorphine-naloxone 8-2 mg sl film 90 30 Peewee Gutierrez SENIOR COMPENSATION ANALYST Insurance [facility] 06/06/2019 06/07/2019 buprenorphine-naloxone 8-2 mg sl film 30 10 Giacomo Norris ([place]) Insurance [facility] 05/11/2019 05/11/2019 buprenorphine-naloxone 8-2 mg sl film 60 20 Giacomo Norris ([place]) Insurance [facility] Patient Name: Kasandra BraunBirth Date: 1975 Address: [address] [place] [id number]: Female Rx Written Rx Dispensed Drug Quantity Days Supply Prescriber Name Payment Method Dispenser 04/23/2020 04/23/2020 buprenorphine-naloxone 8-2 mg sl film 60 20 Peewee Gutierrez NP Insurance [facility] Exam Limitations: No Limitations - Review of Systems Constitutional: Chills, Loss of Appetite, Weakness EENT: reports: No Symptoms Reported Respiratory: reports: No Symptoms reported Cardiac: reports: No Symptoms Reported GI: reports: Poor Fluid Intake, Indigestion, Abdominal cramping Musculoskeletal: reports: No Symptoms Reported Integumentary: reports: No Symptoms Reported Neuro: reports: Weakness Endocrine: reports: Excessive Sweating, Increased Thirst Hematology: reports: No Symptoms Reported Psychiatric: reports: Orientated x3, Anxious Other Systems: Reviewed and Negative Patient History - Patient Medical History Hx Anemia: Yes (Not on medication) Hx Asthma: Yes Hx Chronic Obstructive Pulmonary Disease (COPD): No Hx Cancer: No Hx Cardiac Disorders: No Hx Congestive Heart Failure: No Hx Hypertension: No Hx Hypercholesterolemia: No Hx Pacemaker: No HX Cerebrovascular Accident: No Hx Seizures: No Hx Dementia: No Hx Diabetes: No Hx Gastrointestinal Disorders: Yes Hx Liver Disease: No Hx Genitourinary Disorders: No Hx Sexually Transmitted Disorders: Yes (DOES NOT RECALL) Hx Renal Disease (ESRD): No Hx Thyroid Disease: No Hx Human Immunodeficiency Virus (HIV): No (last tested 09/13/19 unknown result) Hx Hepatitis C: No Hx Depression: Yes Hx Suicide Attempt: Yes Hx Bipolar Disorder: Yes Hx Schizophrenia: No - Patient Surgical History Past Surgical History: No Hx Neurologic Surgery: No Hx Cataract Extraction: No Hx Cardiac Surgery: No Hx Lung Surgery: No Hx Breast Surgery: No Hx Breast Biopsy: No Hx Abdominal Surgery: No Hx Appendectomy: No Hx Cholecystectomy: No Hx Genitourinary Surgery: No Hx Section: No Hx Orthopedic Surgery: No Anesthesia Reaction: No - PPD History Previous Implant?: Yes Documented Results: Negative w/proof Date: 11/12/19 Results: 0MM PPD to be Administered?: No - Reproductive History Patient is a Female of Child Bearing Age (11 -55 yrs old): Yes Last Menstrual Period: 11/05/19 Patient : No - Smoking Cessation Smoking history: Current every day smoker Have you smoked in the past 12 months: Yes Aproximately how many cigarettes per day: 10 Hx Chewing Tobacco Use: No Initiated information on smoking cessation: Yes 'Breaking Loose' booklet given: 05/09/20 - Substance & Tx. History Hx Alcohol Use: Yes Hx Substance Use: Yes Substance Use Type: Alcohol, Cocaine Hx Substance Use Treatment: Yes (Detox [facility] 04/12/20 -04/15/20) - Substances abused Alcohol Substance route: Oral Frequency: Daily Amount used: 2 pints Age of first use: 18 Date of last use: 05/09/20 Admission Physical Exam S - Physical General Appearance: Yes: Disheveled, Mild Distress, Sweating, Anxious HEENTM: Yes: EOMI, Hearing grossly Normal, Normal ENT Inspection, Normocephalic, Normal Voice, TARA, Pharynx Normal, Tm's normal Respiratory: Yes: Within Normal Limits Neck: Yes: No masses,lesions,Nodules, Trachea in good position Breast: Yes: Breast Exam Deferred Cardiology: Yes: Regular Rhythm, Regular Rate Abdominal: Yes: Normal Bowel Sounds, Non Tender, Flat, Soft Genitourinary: Yes: Within Normal Limits Back: Yes: Normal Inspection Musculoskeletal: Yes: full range of Motion, Gait Steady, Pelvis Stable Extremities: Yes: Normal Capillary Refill, Normal Inspection, Normal Range of Motion, Non-Tender Neurological: Yes: unit trust manager II-XII NML intact, Fully Oriented, Alert, Motor Strength 5/5, Normal Mood/Affect, Depressed Affect Integumentary: Yes: Normal Color, Dry, Warm Lymphatic: Yes: Within Normal Limits - Diagnostic (1) Alcohol dependence with withdrawal, uncomplicated Current Visit: Yes Status: Acute (2) Opioid use disorder, moderate, on maintenance therapy, dependence Current Visit: Yes Status: Acute (3) Nicotine dependence Current Visit: Yes Status: Acute Qualifiers: Nicotine product type: cigarettes Substance use status: in withdrawal Qualified Code(s): F17.213 - Nicotine dependence, cigarettes, with withdrawal (4) Anemia Current Visit: Yes Status: Chronic Qualifiers: Anemia type: iron deficiency (5) Cannabis dependence Current Visit: Yes Status: Chronic (6) GERD (gastroesophageal reflux disease) Current Visit: Yes Status: Chronic Qualifiers: Esophagitis presence: without esophagitis Qualified Code(s): K21.9 - Gastro-esophageal reflux disease without esophagitis Cleared for Admission S - Detox or Rehab [facility] Level of Care: Medically Managed Detox Regimen/Protocol: Librium Breathalyzer - Breathalyzer Breathalyzer: 0.161 Urine Drug Screen - Test Device Lot number: [id number] Expiration date: 05/06/21 - Control Is test valid?: Yes - Results Drug screen NEGATIVE: No Urine drug screen results: BZO-Benzodiazepines Inpatient Rehab Admission - Rehab Decision to Admit Inpatient rehab admission?: No
[2020-05-09] MEDS ORDERED: MENTHOL/PHENOL 1 EACH UD MM PRN (20:42)
[2020-05-09] MEDS ORDERED: ONDANSETRON *ODT* 4 MG TABLET SL ONE (20:42)
[2020-05-09] MEDS ORDERED: MAGNESIUM CITRATE 300 ML BOTTLE PO PRN (20:42)
[2020-05-09] MEDS ORDERED: METHOCARBAMOL 500 MG TABLET PO PRN (20:42)
[2020-05-09] MEDS ORDERED: MAGNESIUM HYDROX 2400MG/30ML ORAL SUSPENSION 30 ML CUP PO PRN (20:42)
[2020-05-09] MEDS ORDERED: IBUPROFEN 400 MG TABLET (FP) PO PRN (20:42)
[2020-05-09] MEDS ORDERED: chlordiazePOXIDE HCL 25 MG CAPSULE PO PRN (20:42)
[2020-05-09] MEDS ORDERED: BISMUTH SUBSALICYLATE 524 MG/30 ML UD PO PRN (20:42)
[2020-05-09 21:56] VITALS: BMI 26.6
[2020-05-09] MEDS ORDERED: PNEUMOC 13-VAL CONJ-DIP CRM/PF 0.5 ML DISP.SYRIN IM ONE (22:31)
[2020-05-09] MEDS: MELATONIN 5 MG TABLETS PO SCH (23:02)
[2020-05-09] MEDS: chlordiazePOXIDE HCL 25 MG CAPSULE PO SCH (23:02)
[2020-05-09] MEDS: THIAMINE HCL 100 MG TABLET (FP) PO SCH (23:03)
[2020-05-09] MEDS: BACITRACIN 0.9 GM PACKET TP SCH (23:03)
[2020-05-10] MEDS: chlordiazePOXIDE HCL 25 MG CAPSULE PO SCH ×4 (06:53→22:34)
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
[2020-05-10] MEDS: PRENATAL VITAMINS W/ FOLIC ACID TABLET (FP) PO SCH (11:02)
[2020-05-10] MEDS: BUPRENORPHINE/NALOXONE 8 MG/2 MG FILM PACKET SL SCH (11:02)
[2020-05-10] MEDS: BACITRACIN 0.9 GM PACKET TP SCH ×2 (11:02→22:34)
[2020-05-10] MEDS: NICOTINE 14 MG/24 HOURS TOPICAL PATCH TD SCH (11:05)
[2020-05-10] MEDS ORDERED: PNEUMOCOCCAL 23 VACCINE 0.5 ML VIAL IM ONE (12:00)
[2020-05-10] MEDS ORDERED: PNEUMOC 13-VAL CONJ-DIP CRM/PF 0.5 ML DISP.SYRIN IM ONE (12:00)
[2020-05-10] MEDS: CEPHALEXIN MONOHYDRATE 500 MG CAPSULE (UD) PO SCH ×3 (12:22→23:03)
[2020-05-10 12:29] LABS: HEMATOCRIT 36.1 % (32.4-45.2); HEMOGLOBIN 11.6 GM/dL (10.7-15.3); MCH 27.3 pg (25.7-33.7); MCHC 32.2 g/dl (32.0-36.0); MEAN CELL VOLUME 84.7 fl (80-96); MEAN PLT VOLUME 9.2 fl (7.5-11.1); PLATELET COUNT 183 K/MM3 (134-434); RBC 4.26 M/mm3 (3.60-5.2); RDW 17.8 % (11.6-15.6); WHITE BLOOD COUNT 3.4 K/mm3 (4.0-10.0)
[2020-05-10 12:42] LABS: ALBUMIN 3.3 g/dl (3.4-5.0); BILIRUBIN,TOTAL 0.7 mg/dL (0.2-1); CALCIUM 8.7 mg/dL (8.5-10.1); CREATININE 0.9 mg/dL (0.55-1.3); POTASSIUM 3.6 mmol/L (3.5-5.1); TOT PROT 7.2 g/dl (6.4-8.2)
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
[2020-05-10] MEDS ORDERED: TRIMETHOBENZAMIDE HCL 200MG/2ML INJ IM ONE (15:45)
[2020-05-10 17:26] LABS: EPI CELLS >36 /uL (0-25.1); HYALINE CASTS 2 /uL (0-3.1); PH,URINE 5.5 (5.0-8.0); URINE APPEARANCE CLOUDY; URINE BACTERIA 2133 /uL (0-1359); URINE BILIRUBIN NEGATIVE (NEGATIVE); URINE COLOR YELLOW; URINE GLUCOSE (UA) NEGATIVE (NEGATIVE); URINE KETONE NEGATIVE (NEGATIVE); URINE LEUK ESTERASE NEGATIVE (NEGATIVE); URINE NITRITE NEGATIVE (NEGATIVE); URINE PROTEIN 1+ (NEGATIVE); URINE RBC 6 /uL (0-23.9); URINE WBC 4 /uL (0-25.8)
[2020-05-10] MEDS ORDERED: COLLOIDAL OATMEAL 1 BAR EACH TP PRN (19:39)
--- NOTE | 2020-05-10 19:40 | PN ---
[facility] Progress Note Note: Vital Signs Temperature 97.7 F 05/10/20 12:52 Pulse Rate 64 05/10/20 12:52 Respiratory Rate 16 05/10/20 12:52 Blood Pressure 126/72 05/10/20 12:52 O2 Sat by Pulse Oximetry (%) 98 05/10/20 12:52 c/o dry skin aveeno soap A&D oint continue to monitor
[2020-05-10] MEDS ORDERED: ONDANSETRON *ODT* 4 MG TABLET SL ONE (20:30)
[2020-05-10] MEDS: QUEtiapine FUMARATE 50 MG TABLET PO SCH (22:34)
[2020-05-10] MEDS: MELATONIN 5 MG TABLETS PO SCH (22:34)
[2020-05-10] MEDS: THIAMINE HCL 100 MG TABLET (FP) PO SCH (22:35)
[2020-05-10] MEDS: VITAMINS A AND D TOPICAL OINTMENT 60 GM TUBE TP PRN (22:44)
[2020-05-11] MEDS: chlordiazePOXIDE HCL 25 MG CAPSULE PO SCH ×4 (05:39→22:36)
[2020-05-11] MEDS: CEPHALEXIN MONOHYDRATE 500 MG CAPSULE (UD) PO SCH ×3 (05:39→18:37)
[2020-05-11] MEDS: BACITRACIN 0.9 GM PACKET TP SCH ×2 (10:23→22:37)
[2020-05-11] MEDS: PRENATAL VITAMINS W/ FOLIC ACID TABLET (FP) PO SCH (10:23)
[2020-05-11] MEDS: NICOTINE 14 MG/24 HOURS TOPICAL PATCH TD SCH (10:24)
[2020-05-11] MEDS: BUPRENORPHINE/NALOXONE 8 MG/2 MG FILM PACKET SL SCH (10:24)
--- NOTE | 2020-05-11 10:39 | PN ---
S CIWA - CIWA Score Nausea/Vomitin-No Nausea/No Vomiting Muscle Tremors: 2 Anxiety: 3 Agitation: 0-Normal Activity Paroxysmal Sweats: 3 Orientation: 0-Oriented Tacttile Disturbances: 0-None Auditory Disturbances: 0-None Visual Disturbances: 0-None Headache: 2-Mild CIWA-Ar Total Score: 10 BHS Progress Note (SOAP) Subjective: c/o sweats, anxiety, shakes, and headache. Objective: 05/11/20 10:37 Vital Signs 05/11/20 05/11/20 06:35 08:50 Temperature 97.6 F 96.1 F L Pulse Rate 84 81 Respiratory 18 18 Rate Blood Pressure 106/65 101/68 O2 Sat by Pulse 96 96 Oximetry (%) Laboratory Last Values WBC 3.4 K/mm3 (4.0-10.0) L 05/10/20 08:40 RBC 4.26 M/mm3 (3.60-5.2) 05/10/20 08:40 Hgb 11.6 GM/dL (10.7-15.3) 05/10/20 08:40 Hct 36.1 % (32.4-45.2) 05/10/20 08:40 MCV 84.7 fl (80-96) 05/10/20 08:40 MCH 27.3 pg (25.7-33.7) 05/10/20 08:40 MCHC 32.2 g/dl (32.0-36.0) 05/10/20 08:40 RDW 17.8 % (11.6-15.6) H 05/10/20 08:40 Plt Count 183 K/MM3 (134-434) 05/10/20 08:40 MPV 9.2 fl (7.5-11.1) 05/10/20 08:40 Sodium 140 mmol/L (136-145) 05/10/20 08:40 Potassium 3.6 mmol/L (3.5-5.1) 05/10/20 08:40 Chloride 107 mmol/L (98-107) 05/10/20 08:40 Carbon Dioxide 25 mmol/L (21-32) 05/10/20 08:40 Anion Gap 9 MMOL/L (8-16) 05/10/20 08:40 BUN 7.0 mg/dL (7-18) 05/10/20 08:40 Creatinine 0.9 mg/dL (0.55-1.3) 05/10/20 08:40 Est GFR (CKD-EPI)AfAm 90.13 05/10/20 08:40 Est GFR (CKD-EPI)NonAf 77.76 05/10/20 08:40 Random Glucose 102 mg/dL (74-106) 05/10/20 08:40 Calcium 8.7 mg/dL (8.5-10.1) 05/10/20 08:40 Total Bilirubin 0.7 mg/dL (0.2-1) 05/10/20 08:40 AST 31 U/L (15-37) 05/10/20 08:40 ALT 29 U/L (13-61) 05/10/20 08:40 Alkaline Phosphatase 70 U/L (45-117) 05/10/20 08:40 Total Protein 7.2 g/dl (6.4-8.2) 05/10/20 08:40 Albumin 3.3 g/dl (3.4-5.0) L 05/10/20 08:40 Urine Color Yellow 05/10/20 15:38 Urine Appearance Cloudy 05/10/20 15:38 Urine pH 5.5 (5.0-8.0) 05/10/20 15:38 Ur Specific [place] 1.022 (1.010-1.035) 05/10/20 15:38 Urine Protein 1+ (NEGATIVE) H 05/10/20 15:38 Urine Glucose (UA) Negative (NEGATIVE) 05/10/20 15:38 Urine Ketones Negative (NEGATIVE) 05/10/20 15:38 Urine Blood Negative (NEGATIVE) 05/10/20 15:38 Urine Nitrite Negative (NEGATIVE) 05/10/20 15:38 Urine Bilirubin Negative (NEGATIVE) 05/10/20 15:38 Urine Urobilinogen 1.0 mg/dL (0.2-1.0) 05/10/20 15:38 Ur Leukocyte Esterase Negative (NEGATIVE) 05/10/20 15:38 Urine WBC (Auto) 4 /uL (0-25.8) 05/10/20 15:38 Urine RBC (Auto) 6 /uL (0-23.9) 05/10/20 15:38 Urine Casts (Auto) 2 /uL (0-3.1) 05/10/20 15:38 U Epithel Cells (Auto) >36 /uL (0-25.1) 05/10/20 15:38 Urine Bacteria (Auto) 2133 /uL (0-1359) 05/10/20 15:38 POC Urine HCG, Qual Negative 05/09/20 20:07 Syphilis Serology Non-reactive (NONREACTIVE) 05/10/20 08:40 Labs noted. Assessment: 05/11/20 10:37 AOX3, in no acute respiratory distress. Full ROM, ambulating in the unit. Withdrawal symptoms. Plan: continue detox.
[2020-05-11] MEDS: NICOTINE POLACRILEX 2 MG GUM BUC PRN (13:03)
[2020-05-11] MEDS: MAG HYDROX/AL HYDROX/SIMETH 30 ML UNIT-DOSE CUP PO PRN (18:37)
[2020-05-11] MEDS: QUEtiapine FUMARATE 50 MG TABLET PO SCH (22:36)
[2020-05-11] MEDS: THIAMINE HCL 100 MG TABLET (FP) PO SCH (22:36)
[2020-05-11] MEDS: MELATONIN 5 MG TABLETS PO SCH (22:37)
[2020-05-12] MEDS ORDERED: chlordiazePOXIDE HCL 10 MG CAPSULE PO PRN
[2020-05-12] MEDS: CEPHALEXIN MONOHYDRATE 500 MG CAPSULE (UD) PO SCH ×4 (01:00→17:22)
[2020-05-12] MEDS: chlordiazePOXIDE HCL 10 MG CAPSULE PO SCH ×4 (05:43→22:09)
[2020-05-12] MEDS: BACITRACIN 0.9 GM PACKET TP SCH ×2 (10:15→22:09)
[2020-05-12] MEDS: BUPRENORPHINE/NALOXONE 8 MG/2 MG FILM PACKET SL SCH (10:15)
[2020-05-12] MEDS: NICOTINE 14 MG/24 HOURS TOPICAL PATCH TD SCH (10:15)
[2020-05-12] MEDS: PRENATAL VITAMINS W/ FOLIC ACID TABLET (FP) PO SCH (10:15)
--- NOTE | 2020-05-12 14:05 | PN ---
S CIWA - CIWA Score Nausea/Vomitin-Mild Nausea/No Vomiting Muscle Tremors: 2 Anxiety: 1-Mildly Anxious Agitation: 0-Normal Activity Paroxysmal Sweats: 2 Orientation: 0-Oriented Tacttile Disturbances: 0-None Auditory Disturbances: 0-None Visual Disturbances: 0-None Headache: 2-Mild CIWA-Ar Total Score: 8 BHS Progress Note (SOAP) Subjective: 45 years old female was admitted on 05/09/20 for alcohol withdrawal sx management treating with librium detox regiment taking suboxone 8-2 mg sl bid due to negative suboxon urine tox upon admission begin suboxone 8-2 mg sl po daily ms draper is willing return to to suboxone program for behavior and psychosocial therapies Objective: 05/12/20 14:07 Vital Signs - 24 hr 05/11/20 05/11/20 05/12/20 16:19 20:43 06:24 Temperature 97.1 F L 97.5 F L 98.0 F Pulse Rate 66 101 H 70 Respiratory 18 18 16 Rate Blood Pressure 124/79 117/87 99/59 L O2 Sat by Pulse 98 100 100 Oximetry (%) 05/12/20 05/12/20 08:52 13:25 Temperature 98.3 F 97.1 F L Pulse Rate 78 106 H Respiratory 18 18 Rate Blood Pressure 119/52 L 116/76 O2 Sat by Pulse 100 100 Oximetry (%) Laboratory Tests 05/09/20 05/09/20 05/10/20 10:30 20:07 08:40 WBC RBC Hgb Hct MCV MCH MCHC RDW Plt Count MPV Sodium Potassium Chloride Carbon Dioxide Anion Gap BUN Creatinine Est GFR (CKD-EPI)AfAm Est GFR (CKD-EPI)NonAf Random Glucose Calcium Total Bilirubin AST ALT Alkaline Phosphatase Total Protein Albumin Urine Color Urine Appearance Urine pH Ur Specific [place] Urine Protein Urine Glucose (UA) Urine Ketones Urine Blood Urine Nitrite Urine Bilirubin Urine Urobilinogen Ur Leukocyte Esterase Urine WBC (Auto) Urine RBC (Auto) Urine Casts (Auto) U Epithel Cells (Auto) Urine Bacteria (Auto) POC Urine HCG, Qual Negative Syphilis Serology Non-reactive COVID-19 (ROBERT) Not detected 05/10/20 05/10/20 05/10/20 08:40 08:40 15:38 WBC 3.4 L RBC 4.26 Hgb 11.6 Hct 36.1 MCV 84.7 MCH 27.3 MCHC 32.2 RDW 17.8 H Plt Count 183 MPV 9.2 Sodium 140 Potassium 3.6 Chloride 107 Carbon Dioxide 25 Anion Gap 9 BUN 7.0 Creatinine 0.9 Est GFR (CKD-EPI)AfAm 90.13 Est GFR (CKD-EPI)NonAf 77.76 Random Glucose 102 Calcium 8.7 Total Bilirubin 0.7 AST 31 ALT 29 Alkaline Phosphatase 70 Total Protein 7.2 Albumin 3.3 L Urine Color Yellow Urine Appearance Cloudy Urine pH 5.5 Ur Specific [place] 1.022 Urine Protein 1+ H Urine Glucose (UA) Negative Urine Ketones Negative Urine Blood Negative Urine Nitrite Negative Urine Bilirubin Negative Urine Urobilinogen 1.0 Ur Leukocyte Esterase Negative Urine WBC (Auto) 4 Urine RBC (Auto) 6 Urine Casts (Auto) 2 U Epithel Cells (Auto) >36 Urine Bacteria (Auto) 2133 POC Urine HCG, Qual Syphilis Serology COVID-19 (ROBERT) possible ua specimen contamination Assessment: 05/12/20 14:11 alcohol withdrawal Plan: librium regiment
[2020-05-12] MEDS: MELATONIN 5 MG TABLETS PO SCH (22:08)
[2020-05-12] MEDS: THIAMINE HCL 100 MG TABLET (FP) PO SCH (22:08)
[2020-05-12] MEDS: QUEtiapine FUMARATE 50 MG TABLET PO SCH (22:08)
[2020-05-12] MEDS: VITAMINS A AND D TOPICAL OINTMENT 60 GM TUBE TP PRN (22:10)
[2020-05-13] MEDS: MAG HYDROX/AL HYDROX/SIMETH 30 ML UNIT-DOSE CUP PO PRN ×2 (01:12→22:32)
[2020-05-13] MEDS: chlordiazePOXIDE HCL 10 MG CAPSULE PO SCH ×2 (05:53→17:36)
--- NOTE | 2020-05-13 10:21 | PN ---
S CIWA - CIWA Score Nausea/Vomitin-Mild Nausea/No Vomiting Muscle Tremors: 1-None Visible, but [place] Anxiety: 2 Agitation: 0-Normal Activity Paroxysmal Sweats: 1-Minimal Palms Moist Orientation: 0-Oriented Tacttile Disturbances: 0-None Auditory Disturbances: 0-None Visual Disturbances: 1-Very Mild Sensitivity Headache: 0-None Present CIWA-Ar Total Score: 6 B[facility] Progress Note (SOAP) Subjective: 45 years old female was admitted on 05/09/20 for alcohol withdrawal sx management treating with librium detox regiment feels nausea after breakfast zofran 4 mg sl x 1 discussing aftercare with staff ms draper prefers [place] for alcohol abuse treatment Objective: 05/13/20 10:23 Vital Signs - 24 hr 05/12/20 05/12/20 05/12/20 13:25 16:50 20:33 Temperature 97.1 F L 98.0 F 97.2 F L Pulse Rate 106 H 85 70 Respiratory 18 18 16 Rate Blood Pressure 116/76 142/98 135/92 O2 Sat by Pulse 100 100 Oximetry (%) 05/13/20 05/13/20 06:56 08:56 Temperature 97.0 F L 97.5 F L Pulse Rate 82 85 Respiratory 18 18 Rate Blood Pressure 119/83 109/82 O2 Sat by Pulse 100 Oximetry (%) Laboratory Tests 05/09/20 05/09/20 05/10/20 10:30 20:07 08:40 WBC RBC Hgb Hct MCV MCH MCHC RDW Plt Count MPV Sodium Potassium Chloride Carbon Dioxide Anion Gap BUN Creatinine Est GFR (CKD-EPI)AfAm Est GFR (CKD-EPI)NonAf Random Glucose Calcium Total Bilirubin AST ALT Alkaline Phosphatase Total Protein Albumin Urine Color Urine Appearance Urine pH Ur Specific [place] Urine Protein Urine Glucose (UA) Urine Ketones Urine Blood Urine Nitrite Urine Bilirubin Urine Urobilinogen Ur Leukocyte Esterase Urine WBC (Auto) Urine RBC (Auto) Urine Casts (Auto) U Epithel Cells (Auto) Urine Bacteria (Auto) POC Urine HCG, Qual Negative Syphilis Serology Non-reactive COVID-19 ([facility]) Not detected 05/10/20 05/10/20 05/10/20 08:40 08:40 15:38 WBC 3.4 L RBC 4.26 Hgb 11.6 Hct 36.1 MCV 84.7 MCH 27.3 MCHC 32.2 RDW 17.8 H Plt Count 183 MPV 9.2 Sodium 140 Potassium 3.6 Chloride 107 Carbon Dioxide 25 Anion Gap 9 BUN 7.0 Creatinine 0.9 Est GFR (CKD-EPI)AfAm 90.13 Est GFR (CKD-EPI)NonAf 77.76 Random Glucose 102 Calcium 8.7 Total Bilirubin 0.7 AST 31 ALT 29 Alkaline Phosphatase 70 Total Protein 7.2 Albumin 3.3 L Urine Color Yellow Urine Appearance Cloudy Urine pH 5.5 Ur Specific [place] 1.022 Urine Protein 1+ H Urine Glucose (UA) Negative Urine Ketones Negative Urine Blood Negative Urine Nitrite Negative Urine Bilirubin Negative Urine Urobilinogen 1.0 Ur Leukocyte Esterase Negative Urine WBC (Auto) 4 Urine RBC (Auto) 6 Urine Casts (Auto) 2 U Epithel Cells (Auto) >36 Urine Bacteria (Auto) 2133 POC Urine HCG, Qual Syphilis Serology COVID-19 ([facility]OBERT) rule out urine specimen contamination 05/13/20 10:24 repeat ua Assessment: 05/13/20 10:24 alcohol withdrawal Plan: librium regiment
[2020-05-13] MEDS ORDERED: ONDANSETRON *ODT* 4 MG TABLET SL ONE (10:30)
[2020-05-13] MEDS: PRENATAL VITAMINS W/ FOLIC ACID TABLET (FP) PO SCH (10:31)
[2020-05-13] MEDS: BACITRACIN 0.9 GM PACKET TP SCH ×2 (10:32→22:30)
[2020-05-13] MEDS: NICOTINE 14 MG/24 HOURS TOPICAL PATCH TD SCH (10:32)
[2020-05-13] MEDS: BUPRENORPHINE/NALOXONE 8 MG/2 MG FILM PACKET SL SCH (10:35)
[2020-05-13] MEDS: NICOTINE POLACRILEX 2 MG GUM BUC PRN (13:15)
[2020-05-13 18:56] LABS: URINE APPEARANCE CLOUDY; URINE BILIRUBIN NEGATIVE (NEGATIVE); URINE COLOR YELLOW; URINE GLUCOSE (UA) NEGATIVE (NEGATIVE); URINE KETONE NEGATIVE (NEGATIVE); URINE LEUK ESTERASE NEGATIVE (NEGATIVE); URINE NITRITE NEGATIVE (NEGATIVE); URINE PROTEIN NEGATIVE (NEGATIVE); URINE UROBILINOGEN 0.2 mg/dL (0.2-1.0)
[2020-05-13] MEDS: QUEtiapine FUMARATE 50 MG TABLET PO SCH (22:30)
[2020-05-13] MEDS: MELATONIN 5 MG TABLETS PO SCH (22:30)
[2020-05-13] MEDS: THIAMINE HCL 100 MG TABLET (FP) PO SCH (22:30)
[2020-05-13] MEDS: VITAMINS A AND D TOPICAL OINTMENT 60 GM TUBE TP PRN (22:32)
[2020-05-14] MEDS: MAG HYDROX/AL HYDROX/SIMETH 30 ML UNIT-DOSE CUP PO PRN (04:24)
[2020-05-14] MEDS ORDERED: chlordiazePOXIDE HCL 10 MG CAPSULE PO ONE (05:00)
[2020-05-14 09:16] VITALS: BP 132/89; PULSE 87; TEMP 97.3
[2020-05-14] MEDS: BUPRENORPHINE/NALOXONE 8 MG/2 MG FILM PACKET SL SCH (10:19)
[2020-05-14] MEDS: BACITRACIN 0.9 GM PACKET TP SCH (10:19)
[2020-05-14] MEDS: PRENATAL VITAMINS W/ FOLIC ACID TABLET (FP) PO SCH (10:19)
[2020-05-14] MEDS: NICOTINE 14 MG/24 HOURS TOPICAL PATCH TD SCH (10:20)
[2020-05-14] MEDS: NICOTINE POLACRILEX 2 MG GUM BUC PRN (10:22)
--- NOTE | 2020-05-14 10:39 | DS ---
[facility] Detox Discharge Summary Admission Date: 05/09/20 Discharge Date: 05/14/20 - History Present History: Alcohol Dependence Additional Comments: 45 years old female was admitted on 05/09/20 for alcohol withdrawal sx management treated with librium detox regiment seen by psychiatrist marko newberry ms draper has completed the librum regiment and is tolerated well General Appearance: Yes: good hygiene, no Distress, not Sweating, mild Anxious HEENTM: Yes: EOMI, Hearing grossly Normal, Normal ENT Inspection, Normocephalic, Normal Voice, TARA, Pharynx Normal, Tm's normal Respiratory: Yes: Within Normal Limits Neck: Yes: No masses,lesions,Nodules, Trachea in good position Breast: Yes: Breast Exam Deferred Cardiology: Yes: Regular Rhythm, Regular Rate Abdominal: Yes: Normal Bowel Sounds, Non Tender, Flat, Soft Genitourinary: Yes: Within Normal Limits Back: Yes: Normal Inspection Musculoskeletal: Yes: full range of Motion, Gait Steady, Pelvis Stable Extremities: Yes: Normal Capillary Refill, Normal Inspection, Normal Range of Motion, Non-Tender Neurological: Yes: exploration driller II-XII NML intact, Fully Oriented, Alert, Motor Strength 5/5, Normal Mood/Affect, Depressed Affect Integumentary: Yes: Normal Color, Dry, Warm Lymphatic: Yes: Within Normal Limits Pertinent Past History: time for discharge 45 minutes transferred order set from detox to rehab - Physical Exam Results Vital Signs: Vital Signs Temperature 97.3 F L 05/14/20 08:50 Pulse Rate 87 05/14/20 08:50 Respiratory Rate 18 05/14/20 08:50 Blood Pressure 132/89 05/14/20 08:50 O2 Sat by Pulse Oximetry (%) 95 05/14/20 05:46 Pertinent Admission Physical Exam Findings: alcohol withdrawal Laboratory Tests 05/09/20 05/09/20 05/10/20 10:30 20:07 08:40 WBC RBC Hgb Hct MCV MCH MCHC RDW Plt Count MPV Sodium Potassium Chloride Carbon Dioxide Anion Gap BUN Creatinine Est GFR (CKD-EPI)AfAm Est GFR (CKD-EPI)NonAf Random Glucose Calcium Total Bilirubin AST ALT Alkaline Phosphatase Total Protein Albumin Urine Color Urine Appearance Urine pH Ur Specific [place] Urine Protein Urine Glucose (UA) Urine Ketones Urine Blood Urine Nitrite Urine Bilirubin Urine Urobilinogen Ur Leukocyte Esterase Urine WBC (Auto) Urine RBC (Auto) Urine Casts (Auto) U Epithel Cells (Auto) Urine Bacteria (Auto) POC Urine HCG, Qual Negative Syphilis Serology Non-reactive COVID-19 ([facility]ERT) Not detected 05/10/20 05/10/20 05/10/20 08:40 08:40 15:38 WBC 3.4 L RBC 4.26 Hgb 11.6 Hct 36.1 MCV 84.7 MCH 27.3 MCHC 32.2 RDW 17.8 H Plt Count 183 MPV 9.2 Sodium 140 Potassium 3.6 Chloride 107 Carbon Dioxide 25 Anion Gap 9 BUN 7.0 Creatinine 0.9 Est GFR (CKD-EPI)AfAm 90.13 Est GFR (CKD-EPI)NonAf 77.76 Random Glucose 102 Calcium 8.7 Total Bilirubin 0.7 AST 31 ALT 29 Alkaline Phosphatase 70 Total Protein 7.2 Albumin 3.3 L Urine Color Yellow Urine Appearance Cloudy Urine pH 5.5 Ur Specific [place] 1.022 Urine Protein 1+ H Urine Glucose (UA) Negative Urine Ketones Negative Urine Blood Negative Urine Nitrite Negative Urine Bilirubin Negative Urine Urobilinogen 1.0 Ur Leukocyte Esterase Negative Urine WBC (Auto) 4 Urine RBC (Auto) 6 Urine Casts (Auto) 2 U Epithel Cells (Auto) >36 Urine Bacteria (Auto) 2133 POC Urine HCG, Qual Syphilis Serology COVID-19 ([facility]OBERT) 05/13/20 Unknown WBC RBC Hgb Hct MCV MCH MCHC RDW Plt Count MPV Sodium Potassium Chloride Carbon Dioxide Anion Gap BUN Creatinine Est GFR (CKD-EPI)AfAm Est GFR (CKD-EPI)NonAf Random Glucose Calcium Total Bilirubin AST ALT Alkaline Phosphatase Total Protein Albumin Urine Color Yellow Urine Appearance Cloudy Urine pH 5.0 Ur Specific [place] 1.009 L Urine Protein Negative Urine Glucose (UA) Negative Urine Ketones Negative Urine Blood Negative Urine Nitrite Negative Urine Bilirubin Negative Urine Urobilinogen 0.2 Ur Leukocyte Esterase Negative Urine WBC (Auto) Urine RBC (Auto) Urine Casts (Auto) U Epithel Cells (Auto) Urine Bacteria (Auto) POC Urine HCG, Qual Syphilis Serology COVID-19 ([facility]OBERT) negative uti - Treatment Hospital Course: Detox Protocol Followed, Detoxed Safely, Responded well, Discharged Condition Good, Rehab Referral Accepted Patient has Accepted a [facility] Referral [facility] - Medication Discharge Medications: Ambulatory Orders Albuterol Sulfate Inhaler - [Ventolin HFA Inhaler -] 2 inhaler PO TID 05/09/20 Bacitracin - [Bacitracin Topical Ointment -] 1 applic TID 05/09/20 Budesonide/Formeterol Fumarate [SYMBICORT 80/4.5mcg -] 1 puff IH BID 05/09/20 Buprenorphine/Naloxone [Suboxone 8Mg/2Mg Sl Film -] 1 film SL BID 05/09/20 Cephalexin [Keflex] 500 mg PO TID 05/09/20 - Diagnosis (1) Alcohol dependence with withdrawal, uncomplicated Current Visit: Yes Status: Acute (2) GERD (gastroesophageal reflux disease) Current Visit: Yes Status: Chronic Qualifiers: Esophagitis presence: without esophagitis Qualified Code(s): K21.9 - Gastro-esophageal reflux disease without esophagitis (3) Nicotine dependence Current Visit: Yes Status: Acute Qualifiers: Nicotine product type: cigarettes Substance use status: in withdrawal Qualified Code(s): F17.213 - Nicotine dependence, cigarettes, with withdrawal (4) Substance induced mood disorder Current Visit: Yes Status: Suspected (5) Asthma Current Visit: Yes Status: Chronic Qualifiers: Asthma severity: mild Asthma persistence: intermittent Asthma complication type: with status asthmaticus Qualified Code(s): J45.22 - Mild intermittent asthma with status asthmaticus (6) Encounter for monitoring Suboxone maintenance therapy Current Visit: Yes Status: Chronic (7) Substance induced mood disorder Current Visit: Yes Status: Suspected - AMA Did Patient Leave Against Medical Advice: No CIWA Score - CIWA Score Nausea/Vomitin-Mild Nausea/No Vomiting Muscle Tremors: 1-None Visible, but [place] Anxiety: 1-Mildly Anxious Agitation: 0-Normal Activity Paroxysmal Sweats: No Perspiration Orientation: 0-Oriented Tacttile Disturbances: 0-None Auditory Disturbances: 0-None Visual Disturbances: 0-None Headache: 0-None Present CIWA-Ar Total Score: 3
== END 2020-05-14 11:39 | disposition other institution (70) | DRG 773 ==
LOC: YASAS 18:29 → Y3N 21:23
PROVIDERS: ADMIT Allergy & Immunology; ATTEND Allergy & Immunology
PROC: HZ2ZZZZ Detoxification Services for Substance Abuse Treatment (ICD-10-PCS; principal; 2020-05-09)
DX: F10.230 Alcohol dependence with withdrawal, uncomplicated (principal); F11.20 Opioid dependence, uncomplicated; F12.10 Cannabis abuse, uncomplicated; F17.210 Nicotine dependence, cigarettes, uncomplicated; F19.24 Other psychoactive substance dependence with psychoactive substance-induced mood disorder; D50.9 Iron deficiency anemia, unspecified; K21.9 Gastro-esophageal reflux disease without esophagitis; J45.909 Unspecified asthma, uncomplicated; L85.3 Xerosis cutis; G47.00 Insomnia, unspecified; Z51.81 Encounter for therapeutic drug level monitoring; Z79.899 Other long term (current) drug therapy; Z91.19 Patient's noncompliance with other medical treatment and regimen
CPT/HCPCS: 36415; 80053; 81003; 81025; 85027; 86780; Q0162; U0003

== ENCOUNTER 2020-05-14 11:16 | Inpatient (IN) | payer OTHER ==
--- NOTE | 2020-05-14 10:40 | HP ---
[facility] Rehab Assess/Revision - Admission History Admitted to Rehab from: [facility] Date of Admission to Rehab: 05/14/20 - Findings Detox History & Physical reviewed: Yes Concur with findings: Yes Comments/Additional Findings: transferred from detox to rehab admission as per protocol Inpatient Rehab Admission - Rehab Decision to Admit Inpatient rehab admission?: Yes - Initial Determination Are CD services needed?: Yes Free of communicable disease: Yes Not in need of hospitalization: Yes - Rehab Admission Criteria Previous failed treatment: Yes Poor recovery environment: Yes Comorbidities: Yes Lacks judgement: Yes Patient is meeting Inpatient Rehab admission criteria:: Yes
[~2020-05-14 11:16] MED LIST: ACETAMINOPHEN 325 MG TABLET (FP) PO PRN; COLLOIDAL OATMEAL 1 BAR EACH TP PRN; IBUPROFEN 400 MG TABLET (FP) PO PRN; MAGNESIUM CITRATE 300 ML BOTTLE PO PRN; MAGNESIUM HYDROX 2400MG/30ML ORAL SUSPENSION 30 ML CUP PO PRN; P-EPHED 60MG/TRIPROLIDI 2.5MG TABLET PO PRN; guaiFENesin 200 MG/10 ML 10 ML UNIT-DOSE CUPS PO PRN
[2020-05-14] MEDS: VITAMINS A AND D TOPICAL OINTMENT 60 GM TUBE TP SCH ×2 (12:49→18:25)
[2020-05-14] MEDS: LOPERAMIDE HCL 2 MG CAPSULE PO PRN (12:52)
--- NOTE | 2020-05-14 15:28 | PN ---
S Progress Note Note: Pt is a 45 y/o female admitted to rehab from detox [facility] [place]. Reports tiredness and wants to rest, post detox. PMHx:Asthma(uses albuterol inh) Vital Signs - 24 hr 05/14/20 05/14/20 11:47 13:43 Temperature 98.2 F Pulse Rate 90 Respiratory 18 Rate Blood Pressure 112/81 O2 Sat by Pulse 100 Oximetry (%) Alert o x 3 nad pt seen in bed, denies discomfort"I just got out of bed now to get my snack". s/p detox cont rehab increase po fluids
[2020-05-14] MEDS: THIAMINE HCL 100 MG TABLET (FP) PO SCH (21:18)
[2020-05-14] MEDS: MELATONIN 5 MG TABLETS PO SCH (21:19)
[2020-05-14] MEDS: BACITRACIN 0.9 GM PACKET TP SCH (21:21)
[2020-05-14] MEDS ORDERED: QUEtiapine FUMARATE 50 MG TABLET PO SCH (22:00)
[2020-05-15] MEDS: VITAMINS A AND D TOPICAL OINTMENT 60 GM TUBE TP SCH ×4 (00:23→18:04)
[2020-05-15] MEDS: LOPERAMIDE HCL 2 MG CAPSULE PO PRN (02:25)
[2020-05-15] MEDS ORDERED: ALBUTEROL SO4 HFA INHALER IH PRN ×2 (09:39→09:40)
--- NOTE | 2020-05-15 09:39 | PN ---
S Progress Note Note: Pt c/o withdrawal sx-diarrhea, nausea and vomiting. Pt is s/p detox. Reports has been given Imodium with no relief. Vital Signs - 24 hr 05/14/20 05/14/20 05/14/20 11:47 13:43 20:25 Temperature 98.2 F Pulse Rate 90 Respiratory 18 Rate Blood Pressure 112/81 O2 Sat by Pulse 100 100 Oximetry (%) 05/15/20 06:14 Temperature 97.8 F Pulse Rate 90 Respiratory 20 Rate Blood Pressure 130/89 O2 Sat by Pulse 100 Oximetry (%) Alert o x 3 nad oob ambulating with steady gait S/P detox protracted w/s Lomotil 1 tab po tid prn for diarrhea. zofran prn as directed
[2020-05-15] MEDS: BACITRACIN 0.9 GM PACKET TP SCH ×2 (09:57→21:33)
[2020-05-15] MEDS: PRENATAL VITAMINS W/ FOLIC ACID TABLET (FP) PO SCH (09:57)
[2020-05-15] MEDS: NICOTINE 14 MG/24 HOURS TOPICAL PATCH TD SCH (09:58)
[2020-05-15] MEDS: BUPRENORPHINE/NALOXONE 8 MG/2 MG FILM PACKET SL SCH (09:58)
[2020-05-15] MEDS ORDERED: ONDANSETRON *ODT* 4 MG TABLET SL PRN (10:04)
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
[2020-05-15] MEDS: DIPHENOXYLATE 2.5/ATROPINE.025 1 COMBO TABLET PO PRN (14:34)
[2020-05-15] MEDS: QUEtiapine FUMARATE 25 MG TABLET PO SCH (18:03)
[2020-05-15] MEDS: THIAMINE HCL 100 MG TABLET (FP) PO SCH (21:31)
[2020-05-15] MEDS: QUEtiapine FUMARATE 100 MG TABLET (FP) PO SCH (21:32)
[2020-05-15] MEDS: MELATONIN 5 MG TABLETS PO SCH (21:32)
[2020-05-16] MEDS: VITAMINS A AND D TOPICAL OINTMENT 60 GM TUBE TP SCH ×4 (00:51→18:17)
[2020-05-16] MEDS ORDERED: PT OWN MED DRAWER 7, Y5N ONE (06:25)
[2020-05-16] MEDS: BACITRACIN 0.9 GM PACKET TP SCH ×2 (10:30→21:19)
[2020-05-16] MEDS: NICOTINE 14 MG/24 HOURS TOPICAL PATCH TD SCH (10:30)
[2020-05-16] MEDS: BUPRENORPHINE/NALOXONE 8 MG/2 MG FILM PACKET SL SCH (10:30)
[2020-05-16] MEDS: PRENATAL VITAMINS W/ FOLIC ACID TABLET (FP) PO SCH (10:30)
[2020-05-16] MEDS: QUEtiapine FUMARATE 25 MG TABLET PO SCH ×2 (10:30→15:43)
[2020-05-16] MEDS: NICOTINE POLACRILEX 2 MG GUM BC PRN (10:33)
[2020-05-16] MEDS: THIAMINE HCL 100 MG TABLET (FP) PO SCH (21:18)
[2020-05-16] MEDS: QUEtiapine FUMARATE 100 MG TABLET (FP) PO SCH (21:18)
[2020-05-16] MEDS: MELATONIN 5 MG TABLETS PO SCH (21:19)
[2020-05-17] MEDS: VITAMINS A AND D TOPICAL OINTMENT 60 GM TUBE TP SCH ×4 (00:09→17:28)
[2020-05-17] MEDS: DIPHENOXYLATE 2.5/ATROPINE.025 1 COMBO TABLET PO PRN (00:47)
[2020-05-17] MEDS: NICOTINE POLACRILEX 2 MG GUM BC PRN ×2 (06:30→10:15)
[2020-05-17] MEDS: BUPRENORPHINE/NALOXONE 8 MG/2 MG FILM PACKET SL SCH (10:12)
[2020-05-17] MEDS: QUEtiapine FUMARATE 25 MG TABLET PO SCH ×2 (10:12→16:53)
[2020-05-17] MEDS: PRENATAL VITAMINS W/ FOLIC ACID TABLET (FP) PO SCH (10:12)
[2020-05-17] MEDS: NICOTINE 14 MG/24 HOURS TOPICAL PATCH TD SCH (10:13)
[2020-05-17] MEDS: BACITRACIN 0.9 GM PACKET TP SCH ×2 (10:15→21:27)
[2020-05-17] MEDS ORDERED: PT OWN MED DRAWER 7, Y5N ONE (16:53)
[2020-05-17] MEDS: QUEtiapine FUMARATE 100 MG TABLET (FP) PO SCH (21:27)
[2020-05-17] MEDS: THIAMINE HCL 100 MG TABLET (FP) PO SCH (21:27)
[2020-05-17] MEDS: MELATONIN 5 MG TABLETS PO SCH (21:27)
[2020-05-18] MEDS: VITAMINS A AND D TOPICAL OINTMENT 60 GM TUBE TP SCH ×4 (00:05→18:21)
[2020-05-18] MEDS: NICOTINE 14 MG/24 HOURS TOPICAL PATCH TD SCH (10:19)
[2020-05-18] MEDS: BUPRENORPHINE/NALOXONE 8 MG/2 MG FILM PACKET SL SCH (10:19)
[2020-05-18] MEDS: QUEtiapine FUMARATE 25 MG TABLET PO SCH ×2 (10:19→16:22)
[2020-05-18] MEDS: PRENATAL VITAMINS W/ FOLIC ACID TABLET (FP) PO SCH (10:19)
[2020-05-18] MEDS: NICOTINE POLACRILEX 2 MG GUM BC PRN ×2 (10:20→21:10)
[2020-05-18] MEDS: BACITRACIN 0.9 GM PACKET TP SCH ×2 (10:20→21:08)
[2020-05-18] MEDS ORDERED: PT OWN MED DRAWER 7, Y5N ONE (12:39)
[2020-05-18] MEDS: THIAMINE HCL 100 MG TABLET (FP) PO SCH (21:07)
[2020-05-18] MEDS: QUEtiapine FUMARATE 100 MG TABLET (FP) PO SCH (21:07)
[2020-05-18] MEDS: MELATONIN 5 MG TABLETS PO SCH (21:08)
[2020-05-19] MEDS: VITAMINS A AND D TOPICAL OINTMENT 60 GM TUBE TP SCH ×4 (00:30→18:52)
[2020-05-19] MEDS: MAG HYDROX/AL HYDROX/SIMETH 30 ML UNIT-DOSE CUP PO PRN ×2 (04:52→21:04)
[2020-05-19] MEDS: NICOTINE POLACRILEX 2 MG GUM BC PRN (06:01)
[2020-05-19] MEDS: QUEtiapine FUMARATE 25 MG TABLET PO SCH ×2 (10:09→17:10)
[2020-05-19] MEDS: PRENATAL VITAMINS W/ FOLIC ACID TABLET (FP) PO SCH (10:09)
[2020-05-19] MEDS: NICOTINE 14 MG/24 HOURS TOPICAL PATCH TD SCH (10:09)
[2020-05-19] MEDS: BACITRACIN 0.9 GM PACKET TP SCH ×2 (10:10→21:05)
[2020-05-19] MEDS: BUPRENORPHINE/NALOXONE 8 MG/2 MG FILM PACKET SL SCH (10:10)
[2020-05-19] MEDS: THIAMINE HCL 100 MG TABLET (FP) PO SCH (21:04)
[2020-05-19] MEDS: MELATONIN 5 MG TABLETS PO SCH (21:05)
[2020-05-19] MEDS: QUEtiapine FUMARATE 100 MG TABLET (FP) PO SCH (21:05)
[2020-05-20] MEDS: VITAMINS A AND D TOPICAL OINTMENT 60 GM TUBE TP SCH ×4 (00:30→17:33)
[2020-05-20] MEDS ORDERED: PT OWN MED DRAWER 7, Y5N ONE (09:18)
[2020-05-20] MEDS: BUPRENORPHINE/NALOXONE 8 MG/2 MG FILM PACKET SL SCH (10:12)
[2020-05-20] MEDS: NICOTINE 14 MG/24 HOURS TOPICAL PATCH TD SCH (10:13)
[2020-05-20] MEDS: PRENATAL VITAMINS W/ FOLIC ACID TABLET (FP) PO SCH (10:13)
[2020-05-20] MEDS: BACITRACIN 0.9 GM PACKET TP SCH ×2 (10:13→21:44)
[2020-05-20] MEDS: QUEtiapine FUMARATE 25 MG TABLET PO SCH ×2 (10:14→17:22)
[2020-05-20] MEDS: MAG HYDROX/AL HYDROX/SIMETH 30 ML UNIT-DOSE CUP PO PRN (15:02)
[2020-05-20] MEDS: THIAMINE HCL 100 MG TABLET (FP) PO SCH (21:44)
[2020-05-20] MEDS: QUEtiapine FUMARATE 100 MG TABLET (FP) PO SCH (21:44)
[2020-05-20] MEDS: MELATONIN 5 MG TABLETS PO SCH (21:44)
[2020-05-21] MEDS: VITAMINS A AND D TOPICAL OINTMENT 60 GM TUBE TP SCH ×4 (01:01→17:31)
[2020-05-21] MEDS: PRENATAL VITAMINS W/ FOLIC ACID TABLET (FP) PO SCH (10:10)
[2020-05-21] MEDS: QUEtiapine FUMARATE 25 MG TABLET PO SCH ×2 (10:10→17:30)
[2020-05-21] MEDS: BUPRENORPHINE/NALOXONE 8 MG/2 MG FILM PACKET SL SCH (10:10)
[2020-05-21] MEDS: NICOTINE 14 MG/24 HOURS TOPICAL PATCH TD SCH (10:11)
[2020-05-21] MEDS: BACITRACIN 0.9 GM PACKET TP SCH ×2 (10:11→21:41)
[2020-05-21] MEDS: NICOTINE POLACRILEX 2 MG GUM BC PRN ×2 (10:13→17:32)
[2020-05-21] MEDS ORDERED: PT OWN MED DRAWER 7, Y5N ONE (17:31)
[2020-05-21] MEDS: QUEtiapine FUMARATE 100 MG TABLET (FP) PO SCH (21:41)
[2020-05-21] MEDS: MELATONIN 5 MG TABLETS PO SCH (21:41)
[2020-05-21] MEDS: THIAMINE HCL 100 MG TABLET (FP) PO SCH (21:42)
[2020-05-22] MEDS: VITAMINS A AND D TOPICAL OINTMENT 60 GM TUBE TP SCH ×4 (00:18→17:23)
[2020-05-22] MEDS: BUPRENORPHINE/NALOXONE 8 MG/2 MG FILM PACKET SL SCH (10:32)
[2020-05-22] MEDS: NICOTINE 14 MG/24 HOURS TOPICAL PATCH TD SCH (10:32)
[2020-05-22] MEDS: BACITRACIN 0.9 GM PACKET TP SCH ×2 (10:32→21:17)
[2020-05-22] MEDS: PRENATAL VITAMINS W/ FOLIC ACID TABLET (FP) PO SCH (10:32)
[2020-05-22] MEDS: QUEtiapine FUMARATE 25 MG TABLET PO SCH ×2 (10:32→15:34)
[2020-05-22] MEDS: NICOTINE POLACRILEX 2 MG GUM BC PRN (15:34)
[2020-05-22] MEDS: QUEtiapine FUMARATE 100 MG TABLET (FP) PO SCH (21:17)
[2020-05-22] MEDS: THIAMINE HCL 100 MG TABLET (FP) PO SCH (21:17)
[2020-05-22] MEDS: MELATONIN 5 MG TABLETS PO SCH (21:18)
[2020-05-23] MEDS: VITAMINS A AND D TOPICAL OINTMENT 60 GM TUBE TP SCH ×4 (00:14→18:02)
[2020-05-23] MEDS: BUPRENORPHINE/NALOXONE 8 MG/2 MG FILM PACKET SL SCH (11:13)
[2020-05-23] MEDS: NICOTINE 14 MG/24 HOURS TOPICAL PATCH TD SCH (11:13)
[2020-05-23] MEDS: PRENATAL VITAMINS W/ FOLIC ACID TABLET (FP) PO SCH (11:13)
[2020-05-23] MEDS: BACITRACIN 0.9 GM PACKET TP SCH ×2 (11:14→21:19)
[2020-05-23] MEDS: QUEtiapine FUMARATE 25 MG TABLET PO SCH ×2 (11:14→15:38)
[2020-05-23] MEDS: NICOTINE POLACRILEX 2 MG GUM BC PRN (11:19)
[2020-05-23] MEDS: QUEtiapine FUMARATE 100 MG TABLET (FP) PO SCH (21:18)
[2020-05-23] MEDS: THIAMINE HCL 100 MG TABLET (FP) PO SCH (21:18)
[2020-05-23] MEDS: MELATONIN 5 MG TABLETS PO SCH (21:19)
[2020-05-24] MEDS: VITAMINS A AND D TOPICAL OINTMENT 60 GM TUBE TP SCH ×4 (00:30→18:23)
[2020-05-24] MEDS: PRENATAL VITAMINS W/ FOLIC ACID TABLET (FP) PO SCH (09:56)
[2020-05-24] MEDS: BUPRENORPHINE/NALOXONE 8 MG/2 MG FILM PACKET SL SCH (09:56)
[2020-05-24] MEDS: NICOTINE 14 MG/24 HOURS TOPICAL PATCH TD SCH (09:56)
[2020-05-24] MEDS: BACITRACIN 0.9 GM PACKET TP SCH ×2 (09:56→21:27)
[2020-05-24] MEDS: QUEtiapine FUMARATE 25 MG TABLET PO SCH ×2 (09:56→16:40)
[2020-05-24] MEDS: NICOTINE POLACRILEX 2 MG GUM BC PRN ×2 (09:58→21:27)
[2020-05-24] MEDS: MELATONIN 5 MG TABLETS PO SCH (21:27)
[2020-05-24] MEDS: THIAMINE HCL 100 MG TABLET (FP) PO SCH (21:27)
[2020-05-24] MEDS: QUEtiapine FUMARATE 100 MG TABLET (FP) PO SCH (21:27)
[2020-05-25] MEDS: VITAMINS A AND D TOPICAL OINTMENT 60 GM TUBE TP SCH ×5 (01:07→23:51)
[2020-05-25] MEDS: QUEtiapine FUMARATE 25 MG TABLET PO SCH ×2 (10:39→17:30)
[2020-05-25] MEDS: BACITRACIN 0.9 GM PACKET TP SCH ×2 (10:39→21:41)
[2020-05-25] MEDS: PRENATAL VITAMINS W/ FOLIC ACID TABLET (FP) PO SCH (10:39)
[2020-05-25] MEDS: NICOTINE 14 MG/24 HOURS TOPICAL PATCH TD SCH (10:39)
[2020-05-25] MEDS: BUPRENORPHINE/NALOXONE 8 MG/2 MG FILM PACKET SL SCH (10:40)
[2020-05-25] MEDS: NICOTINE POLACRILEX 2 MG GUM BC PRN ×2 (10:40→17:31)
[2020-05-25] MEDS: THIAMINE HCL 100 MG TABLET (FP) PO SCH (21:40)
[2020-05-25] MEDS: QUEtiapine FUMARATE 100 MG TABLET (FP) PO SCH (21:40)
[2020-05-25] MEDS: MELATONIN 5 MG TABLETS PO SCH (21:41)
[2020-05-26] MEDS: VITAMINS A AND D TOPICAL OINTMENT 60 GM TUBE TP SCH ×4 (08:10→23:35)
[2020-05-26] MEDS: PRENATAL VITAMINS W/ FOLIC ACID TABLET (FP) PO SCH (09:38)
[2020-05-26] MEDS: BACITRACIN 0.9 GM PACKET TP SCH ×2 (09:38→21:20)
[2020-05-26] MEDS: NICOTINE POLACRILEX 2 MG GUM BC PRN ×3 (09:38→21:21)
[2020-05-26] MEDS: QUEtiapine FUMARATE 25 MG TABLET PO SCH ×2 (09:38→15:15)
[2020-05-26] MEDS: NICOTINE 14 MG/24 HOURS TOPICAL PATCH TD SCH (09:39)
[2020-05-26] MEDS: BUPRENORPHINE/NALOXONE 8 MG/2 MG FILM PACKET SL SCH (09:39)
[2020-05-26] MEDS: QUEtiapine FUMARATE 100 MG TABLET (FP) PO SCH (21:20)
[2020-05-26] MEDS: MELATONIN 5 MG TABLETS PO SCH (21:20)
[2020-05-26] MEDS: THIAMINE HCL 100 MG TABLET (FP) PO SCH (21:20)
[2020-05-27] MEDS: VITAMINS A AND D TOPICAL OINTMENT 60 GM TUBE TP SCH ×3 (06:27→17:14)
[2020-05-27] MEDS: NICOTINE 14 MG/24 HOURS TOPICAL PATCH TD SCH (10:18)
[2020-05-27] MEDS: BUPRENORPHINE/NALOXONE 8 MG/2 MG FILM PACKET SL SCH (10:18)
[2020-05-27] MEDS: BACITRACIN 0.9 GM PACKET TP SCH ×2 (10:18→21:29)
[2020-05-27] MEDS: PRENATAL VITAMINS W/ FOLIC ACID TABLET (FP) PO SCH (10:18)
[2020-05-27] MEDS: QUEtiapine FUMARATE 25 MG TABLET PO SCH ×2 (10:19→17:13)
--- NOTE | 2020-05-27 13:05 | PN ---
[facility] Progress Note Note: is scheduled for discharge tomorrow. Scripts for 30 days supply of medications(Seroquel 25 mg/bid & 100 mg/hs)will be electronically transmitted to [facility], [address] [place] [id number]
[2020-05-27] MEDS: THIAMINE HCL 100 MG TABLET (FP) PO SCH (21:28)
[2020-05-27] MEDS: QUEtiapine FUMARATE 100 MG TABLET (FP) PO SCH (21:28)
[2020-05-27] MEDS: MELATONIN 5 MG TABLETS PO SCH (21:29)
[2020-05-28] MEDS: VITAMINS A AND D TOPICAL OINTMENT 60 GM TUBE TP SCH ×4 (00:30→18:55)
[2020-05-28] MEDS: PRENATAL VITAMINS W/ FOLIC ACID TABLET (FP) PO SCH (10:14)
[2020-05-28] MEDS: NICOTINE 14 MG/24 HOURS TOPICAL PATCH TD SCH (10:14)
[2020-05-28] MEDS: BUPRENORPHINE/NALOXONE 8 MG/2 MG FILM PACKET SL SCH (10:14)
[2020-05-28] MEDS: QUEtiapine FUMARATE 25 MG TABLET PO SCH ×2 (10:14→16:45)
[2020-05-28] MEDS: BACITRACIN 0.9 GM PACKET TP SCH ×2 (10:14→21:20)
[2020-05-28] MEDS: MELATONIN 5 MG TABLETS PO SCH (21:20)
[2020-05-28] MEDS: THIAMINE HCL 100 MG TABLET (FP) PO SCH (21:20)
[2020-05-28] MEDS: QUEtiapine FUMARATE 100 MG TABLET (FP) PO SCH (21:20)
[2020-05-28] MEDS: MAG HYDROX/AL HYDROX/SIMETH 30 ML UNIT-DOSE CUP PO PRN (23:56)
[2020-05-29] MEDS: VITAMINS A AND D TOPICAL OINTMENT 60 GM TUBE TP SCH ×4 (00:35→19:48)
[2020-05-29] MEDS: PRENATAL VITAMINS W/ FOLIC ACID TABLET (FP) PO SCH (10:17)
[2020-05-29] MEDS: QUEtiapine FUMARATE 25 MG TABLET PO SCH ×2 (10:17→16:20)
[2020-05-29] MEDS: NICOTINE 14 MG/24 HOURS TOPICAL PATCH TD SCH (10:17)
[2020-05-29] MEDS: BACITRACIN 0.9 GM PACKET TP SCH ×2 (10:18→21:40)
[2020-05-29] MEDS: BUPRENORPHINE/NALOXONE 8 MG/2 MG FILM PACKET SL SCH (10:18)
[2020-05-29] MEDS: QUEtiapine FUMARATE 100 MG TABLET (FP) PO SCH (21:40)
[2020-05-29] MEDS: THIAMINE HCL 100 MG TABLET (FP) PO SCH (21:40)
[2020-05-29] MEDS: MELATONIN 5 MG TABLETS PO SCH (21:41)
[2020-05-30] MEDS: VITAMINS A AND D TOPICAL OINTMENT 60 GM TUBE TP SCH ×4 (06:51→23:43)
[2020-05-30] MEDS: PRENATAL VITAMINS W/ FOLIC ACID TABLET (FP) PO SCH (10:03)
[2020-05-30] MEDS: BUPRENORPHINE/NALOXONE 8 MG/2 MG FILM PACKET SL SCH (10:03)
[2020-05-30] MEDS: QUEtiapine FUMARATE 25 MG TABLET PO SCH ×2 (10:03→16:35)
[2020-05-30] MEDS: NICOTINE 14 MG/24 HOURS TOPICAL PATCH TD SCH (10:03)
[2020-05-30] MEDS: BACITRACIN 0.9 GM PACKET TP SCH ×2 (10:04→21:40)
[2020-05-30] MEDS: THIAMINE HCL 100 MG TABLET (FP) PO SCH (21:39)
[2020-05-30] MEDS: QUEtiapine FUMARATE 100 MG TABLET (FP) PO SCH (21:39)
[2020-05-30] MEDS: MELATONIN 5 MG TABLETS PO SCH (21:39)
[2020-05-31] MEDS: VITAMINS A AND D TOPICAL OINTMENT 60 GM TUBE TP SCH ×3 (06:05→17:40)
[2020-05-31] MEDS: PRENATAL VITAMINS W/ FOLIC ACID TABLET (FP) PO SCH (09:57)
[2020-05-31] MEDS: BUPRENORPHINE/NALOXONE 8 MG/2 MG FILM PACKET SL SCH (09:57)
[2020-05-31] MEDS: NICOTINE 14 MG/24 HOURS TOPICAL PATCH TD SCH (09:57)
[2020-05-31] MEDS: QUEtiapine FUMARATE 25 MG TABLET PO SCH ×2 (09:57→17:38)
[2020-05-31] MEDS: BACITRACIN 0.9 GM PACKET TP SCH ×2 (09:58→21:33)
[2020-05-31] MEDS: THIAMINE HCL 100 MG TABLET (FP) PO SCH (21:33)
[2020-05-31] MEDS: MELATONIN 5 MG TABLETS PO SCH (21:33)
[2020-05-31] MEDS: QUEtiapine FUMARATE 100 MG TABLET (FP) PO SCH (21:33)
[2020-06-01] MEDS: VITAMINS A AND D TOPICAL OINTMENT 60 GM TUBE TP SCH ×4 (00:15→17:06)
[2020-06-01] MEDS: QUEtiapine FUMARATE 25 MG TABLET PO SCH ×2 (10:21→16:05)
[2020-06-01] MEDS: BUPRENORPHINE/NALOXONE 8 MG/2 MG FILM PACKET SL SCH (10:21)
[2020-06-01] MEDS: NICOTINE 14 MG/24 HOURS TOPICAL PATCH TD SCH (10:21)
[2020-06-01] MEDS: PRENATAL VITAMINS W/ FOLIC ACID TABLET (FP) PO SCH (10:21)
[2020-06-01] MEDS: BACITRACIN 0.9 GM PACKET TP SCH ×2 (10:22→21:23)
[2020-06-01] MEDS: NICOTINE POLACRILEX 2 MG GUM BC PRN (16:06)
[2020-06-01] MEDS: MELATONIN 5 MG TABLETS PO SCH (21:22)
[2020-06-01] MEDS: QUEtiapine FUMARATE 100 MG TABLET (FP) PO SCH (21:22)
[2020-06-01] MEDS: THIAMINE HCL 100 MG TABLET (FP) PO SCH (21:22)
[2020-06-02] MEDS: VITAMINS A AND D TOPICAL OINTMENT 60 GM TUBE TP SCH ×5 (00:30→23:57)
[2020-06-02] MEDS: BUPRENORPHINE/NALOXONE 8 MG/2 MG FILM PACKET SL SCH (09:27)
[2020-06-02] MEDS: QUEtiapine FUMARATE 25 MG TABLET PO SCH ×2 (09:27→15:33)
[2020-06-02] MEDS: NICOTINE 14 MG/24 HOURS TOPICAL PATCH TD SCH (09:27)
[2020-06-02] MEDS: PRENATAL VITAMINS W/ FOLIC ACID TABLET (FP) PO SCH (09:27)
[2020-06-02] MEDS: BACITRACIN 0.9 GM PACKET TP SCH ×2 (09:27→21:22)
[2020-06-02] MEDS: THIAMINE HCL 100 MG TABLET (FP) PO SCH (21:21)
[2020-06-02] MEDS: QUEtiapine FUMARATE 100 MG TABLET (FP) PO SCH (21:21)
[2020-06-02] MEDS: MELATONIN 5 MG TABLETS PO SCH (21:22)
[2020-06-03] MEDS: VITAMINS A AND D TOPICAL OINTMENT 60 GM TUBE TP SCH ×3 (07:04→18:34)
[2020-06-03] MEDS: QUEtiapine FUMARATE 25 MG TABLET PO SCH ×2 (10:00→17:06)
[2020-06-03] MEDS: PRENATAL VITAMINS W/ FOLIC ACID TABLET (FP) PO SCH (10:00)
[2020-06-03] MEDS: NICOTINE 14 MG/24 HOURS TOPICAL PATCH TD SCH (10:01)
[2020-06-03] MEDS: BUPRENORPHINE/NALOXONE 8 MG/2 MG FILM PACKET SL SCH (10:01)
[2020-06-03] MEDS: BACITRACIN 0.9 GM PACKET TP SCH ×2 (10:01→21:29)
[2020-06-03] MEDS: QUEtiapine FUMARATE 100 MG TABLET (FP) PO SCH (21:28)
[2020-06-03] MEDS: THIAMINE HCL 100 MG TABLET (FP) PO SCH (21:28)
[2020-06-03] MEDS: MELATONIN 5 MG TABLETS PO SCH (21:29)
[2020-06-04] MEDS: VITAMINS A AND D TOPICAL OINTMENT 60 GM TUBE TP SCH ×4 (01:07→17:49)
[2020-06-04] MEDS: BACITRACIN 0.9 GM PACKET TP SCH ×2 (09:48→21:19)
[2020-06-04] MEDS: NICOTINE 14 MG/24 HOURS TOPICAL PATCH TD SCH (09:48)
[2020-06-04] MEDS: BUPRENORPHINE/NALOXONE 8 MG/2 MG FILM PACKET SL SCH (09:49)
[2020-06-04] MEDS: PRENATAL VITAMINS W/ FOLIC ACID TABLET (FP) PO SCH (09:49)
[2020-06-04] MEDS: QUEtiapine FUMARATE 25 MG TABLET PO SCH ×2 (09:49→15:19)
[2020-06-04] MEDS ORDERED: PT OWN MED DRAWER 7, Y5N ONE (15:18)
[2020-06-04] MEDS: THIAMINE HCL 100 MG TABLET (FP) PO SCH (21:19)
[2020-06-04] MEDS: MELATONIN 5 MG TABLETS PO SCH (21:19)
[2020-06-04] MEDS: QUEtiapine FUMARATE 100 MG TABLET (FP) PO SCH (21:19)
[2020-06-04] MEDS: NICOTINE POLACRILEX 2 MG GUM BC PRN (21:20)
[2020-06-05] MEDS: VITAMINS A AND D TOPICAL OINTMENT 60 GM TUBE TP SCH ×4 (00:57→17:24)
[2020-06-05] MEDS: NICOTINE 14 MG/24 HOURS TOPICAL PATCH TD SCH (09:47)
[2020-06-05] MEDS: BACITRACIN 0.9 GM PACKET TP SCH ×2 (09:47→21:23)
[2020-06-05] MEDS: QUEtiapine FUMARATE 25 MG TABLET PO SCH ×2 (09:48→15:35)
[2020-06-05] MEDS: BUPRENORPHINE/NALOXONE 8 MG/2 MG FILM PACKET SL SCH (09:48)
[2020-06-05] MEDS: PRENATAL VITAMINS W/ FOLIC ACID TABLET (FP) PO SCH (09:48)
--- NOTE | 2020-06-05 12:21 | PN ---
[facility] Progress Note Note: Patient is scheduled for discharge tomorrow. Scripts for 30 days supply of medications(Seroquel 25 mg/bid & 100 mg/hs)will be electronically transmitted to [facility], [address] [place] [id number]
[2020-06-05] MEDS ORDERED: PT OWN MED DRAWER 7, Y5N ONE (13:52)
[2020-06-05] MEDS: QUEtiapine FUMARATE 100 MG TABLET (FP) PO SCH (21:22)
[2020-06-05] MEDS: THIAMINE HCL 100 MG TABLET (FP) PO SCH (21:22)
[2020-06-05] MEDS: MELATONIN 5 MG TABLETS PO SCH (21:23)
[2020-06-06] MEDS: VITAMINS A AND D TOPICAL OINTMENT 60 GM TUBE TP SCH ×2 (00:31→06:33)
[2020-06-06 06:59] VITALS: BP 140/90; PULSE 93; TEMP 97.8
[2020-06-06] MEDS: QUEtiapine FUMARATE 25 MG TABLET PO SCH (09:32)
[2020-06-06] MEDS: PRENATAL VITAMINS W/ FOLIC ACID TABLET (FP) PO SCH (09:32)
[2020-06-06] MEDS: NICOTINE 14 MG/24 HOURS TOPICAL PATCH TD SCH (09:33)
[2020-06-06] MEDS: BUPRENORPHINE/NALOXONE 8 MG/2 MG FILM PACKET SL SCH (09:33)
[2020-06-06] MEDS: BACITRACIN 0.9 GM PACKET TP SCH (09:34)
--- NOTE | 2020-06-06 09:40 | DS ---
[facility] Rehab Discharge Summary - [facility] Rehab Discharge Summary Admission Date: 05/14/20 Discharge Date: 06/06/20 - History Present History: Alcohol dependence, Cannabis dependence Pertinent Past History: Asthma Anemia GERD Bipolar Disorder - Discharge Physical Exam Vital Signs: Vital Signs Temperature 97.8 F 06/06/20 06:58 Pulse Rate 93 H 06/06/20 06:58 Respiratory Rate 18 06/06/20 06:58 Blood Pressure 140/90 06/06/20 06:58 O2 Sat by Pulse Oximetry (%) 100 06/06/20 06:58 General:Alert o x 3,oob with steady gait,denies s/h/i Head:normocephalic, eomi,kat Neck:supple, no jvd cardiac:s1 s2,rrr lungs:ctab abdomen:soft, +bs,nt,nd MSK:Active FROM, all limbs. No edema skin:warm, intact Pertinent Admission Physical Exam Findings: Stable and Unremarkable - Treatment Discharge Condition: Discharge condition good, Rehabilitated safely, Responded well, Outpatient referral accepted Hospital Course: Pt completed rehab and discharging today. Pt accepted CD aftercare to [facility] [place], [place]. - Medication Discharge Medications: Ambulatory Orders Albuterol Sulfate Inhaler - [Ventolin HFA Inhaler -] 2 inhaler PO TID PRN 05/09/20 Bacitracin - [Bacitracin Topical Ointment -] 0.9 gm TP TID 05/09/20 Budesonide/Formeterol Fumarate [SYMBICORT 80/4.5mcg -] 1 puff IH BID 05/09/20 Quetiapine Fumarate [Seroquel -] 25 mg PO BID@1000,1600 #60 tablet 05/27/20 Quetiapine Fumarate [Seroquel -] 100 mg PO HS #30 tablet 05/27/20 Quetiapine Fumarate [Seroquel -] 25 mg PO BID #60 tablet 06/05/20 Quetiapine Fumarate [Seroquel -] 100 mg PO HS #30 tablet 06/05/20 - Medication-Assisted Treatment (MAT) Medication-Assisted Treatment (MAT): No Medication Prescribed: Suboxone - Discharge Instructions Diet, activity, other medical instructions: Diet:Regular Activity:oob ad león Other medical instructions:follow up with primary care with PCP Dr Larson on [address] [place] [address]. - Diagnosis (1) Alcohol use disorder Status: Chronic (2) Asthma Status: Chronic Qualifiers: Asthma severity: mild Asthma persistence: intermittent Asthma complication type: with status asthmaticus Qualified Code(s): J45.22 - Mild intermittent asthma with status asthmaticus (3) Cannabis dependence Status: Chronic (4) Encounter for monitoring Suboxone maintenance therapy Status: Chronic (5) GERD (gastroesophageal reflux disease) Status: Chronic Qualifiers: Esophagitis presence: without esophagitis Qualified Code(s): K21.9 - Gastro-esophageal reflux disease without esophagitis (6) History of depression Status: Chronic (7) Nicotine dependence Status: Chronic Qualifiers: Nicotine product type: cigarettes Substance use status: in withdrawal Qualified Code(s): F17.213 - Nicotine dependence, cigarettes, with withdrawal - Follow-up Referral Minutes to complete discharge: 25 - AMA Did Patient Leave Against Medical Advice: No Additional Comments: Pt is on Suboxone program with her provider in [place] and reports she will be seeing her primary provider today/pharmacy for her 30 days supply and has no need for courtesy Rx from this facility.
== END 2020-06-06 09:33 | disposition home or self-care (01) | DRG 772 ==
LOC: YASAS 11:16 → Y3E 11:17
PROVIDERS: ADMIT Allergy & Immunology; ATTEND Allergy & Immunology
PROC: HZ42ZZZ Group Counseling for Substance Abuse Treatment, Cognitive-Behavioral (ICD-10-PCS; principal; 2020-05-14)
DX: F10.20 Alcohol dependence, uncomplicated (principal); F11.20 Opioid dependence, uncomplicated; F12.20 Cannabis dependence, uncomplicated; F17.210 Nicotine dependence, cigarettes, uncomplicated; F19.24 Other psychoactive substance dependence with psychoactive substance-induced mood disorder; F31.9 Bipolar disorder, unspecified; F41.9 Anxiety disorder, unspecified; D64.9 Anemia, unspecified; J45.20 Mild intermittent asthma, uncomplicated; K21.9 Gastro-esophageal reflux disease without esophagitis; G47.00 Insomnia, unspecified; Z62.810 Personal history of physical and sexual abuse in childhood; Z51.81 Encounter for therapeutic drug level monitoring; Z79.899 Other long term (current) drug therapy; Z56.0 Unemployment, unspecified; Z59.0 Homelessness